=== PATIENT | female | born 1945 | race Caucasian/White ===

== ENCOUNTER → 2017-11-11 10:29 | Outpatient (CLI) | payer MEDICARE, BC, SELFPAY | PROVIDERS: Family Provider Family Medicine; PCP Family Medicine; Visit Provider Nurse Practitioner Family | DX: R00.2 Palpitations (principal); Z98.890 Other specified postprocedural states | CPT/HCPCS: 93225; 93226 ==

== ENCOUNTER → 2017-12-29 12:52 | Outpatient (CLI) | payer MEDICARE, SELFPAY ==
[2017-12-22 10:09] LABS: Hemoglobin A1c 6.4 % (4.2-6.3)
[2017-12-22 10:23] LABS: Magnesium 2.2 mg/dL (1.6-2.6); Thyroid Stim Hormone (TSH) 3.34 uIU/mL (0.358-3.74)
--- NOTE | 2017-12-29 12:57 | MRI_ITS ---
STUDY: MRI BRAIN WITHOUT CONTRAST REASON FOR EXAM: Female, 72 years old. LOSS OF CONTROL BILAT UE, SPEECH CHANGE, EPISODE 3 WKS AGO X SEVERAL HOURS TECHNIQUE: Standardized multiplanar fat and water weighted pulse sequences were obtained. COMPARISON: None. FINDINGS: There is moderate cerebral atrophy with widening of the extra-axial spaces and ventricular dilatation. There are a limited number of small white matter hyperintensities, distributed throughout the deep white matter tracts of the cerebral hemispheres, consistent with mild chronic white matter ischemic changes. Normal bilateral basal ganglia. Normal thalami. There is no extra-axial fluid accumulation. Normal flow voids within the major intracranial circulation suggesting patency by spin echo criteria. Normal sella turcica, pituitary gland, infundibular stalk, optic chiasm and hypothalamus. Normal tectal plate and pineal gland. Normal midbrain, tamara and medulla. Normal cerebellum. Normal basal cisterns. Normal bilateral temporal bones. Normal bilateral internal auditory canals. No demonstrated orbital abnormality, within the constraints of a routine brain study. Normal visualized paranasal sinuses. Normal calvarium and skull base. Normal visualized soft tissue structures. Normal visualized upper cervical spine. MRI/Brain without Contrast IMPRESSION: Involutional changes of the brain, as described above. Electronically Signed: King Davis MD at 4:01 EDT Tel , Service support ,
== END ==
PROVIDERS: Family Provider Family Medicine; PCP Family Medicine; Visit Provider Nurse Practitioner Family
DX: G25.3 Myoclonus (principal); F32.9 Major depressive disorder, single episode, unspecified; R47.01 Aphasia; E11.9 Type 2 diabetes mellitus without complications
CPT/HCPCS: 36415; 70551; 83036; 83735; 84443

== ENCOUNTER → 2018-06-10 11:32 | Outpatient (CLI) | payer MEDICARE, SELFPAY ==
[2018-06-10 13:00] LABS: Hemoglobin A1c 6.5 % (4.2-6.3)
== END ==
PROVIDERS: Family Provider Family Medicine; PCP Family Medicine; Visit Provider Family Medicine
DX: Z86.2 Personal history of diseases of the blood and blood-forming organs and certain disorders involving the immune mechanism (principal)
CPT/HCPCS: 36415; 83036

== ENCOUNTER 2018-07-12 13:15 | Emergency (ER) | payer MEDICARE, SELFPAY ==
[2018-07-12 13:16] VITALS: BP 160/79; PULSE 67; RESP 16; TEMP 36.7; O2SAT 99; BMI 28.2
--- NOTE | 2018-07-12 13:48 | CT_ITS ---
STUDY: CT BRAIN WITHOUT CONTRAST REASON FOR EXAM: Female, 72 years old. Headache. Recent fall. RADIATION DOSAGE (If Supplied By Facility): CTDIvol = ( 44.99 ) mGy, DLP = ( 745.49 ) mGycm TECHNIQUE: Transaxial CT imaging of the brain was performed without administration of intravenous contrast material. Individualized dose optimization techniques were used for this CT. COMPARISON: MRI December 29, 2017. FINDINGS: Normal soft tissue structures. Normal calvarium. There are moderate bilateral intermediate density extra-axial collections measuring up to 1.7 cm in thickness consistent with subdural hygromas. There is effacement of the sulci. Normal size ventricles . Normal white matter tracts of the cerebral hemispheres. Normal basal ganglia and thalami. Normal brainstem. Normal cerebellum. There are no findings of an acute ischemic infarction. Normal visualized paranasal sinuses. CT/Brain/Head without Contrast IMPRESSION: Bilateral subdural collections with hematomas or hygromas. There is effacement of the sulci. N.B. : The above information has been verbally conveyed by Aj Gifford MD to Bobby Miller MD, , on 07/12/2018 15:07:29 (ET). Electronically Signed: Aj Gifford MD at 15:02 EDT , Service support ,
[2018-07-12] MEDS: DiphenhydrAMINE 50 MG/ML Syringe 12.5 MG IV (14:08)
[2018-07-12] MEDS: proCHLORPERazine 10 MG/2 ML Vial 5 MG IV (14:08)
[2018-07-12] MEDS: 0.9% Normal Saline 1,000 ML 999 ML IV (14:08)
--- NOTE | 2018-07-12 15:18 | NURSING ---
CALLED [facility] FOR TRANSFER.
--- NOTE | 2018-07-12 15:22 | ED.VISSUMM ---
- ER Visit Summary Date of Service: 07/12/18 Chief Complaint: Headache History of Present Illness: The patient is a 72 F with headaches intermittently for the past 2 months. This started when she fell at [employer]. She was helping someone else who was falling, and she hit her head. She has had headaches since. The headaches last for several minutes at a time and are worse with exertion. Today, she had a headache that started around 9:30 AM and it has been constant and unrelenting, so she sought medical attention. She does take aspirin daily. Denies any other blood thinners. Denies any other associated symptoms. Denies history of stroke, aneurysm. Physical Examination: Afebrile and vital signs unremarkable except for a blood pressure of 160/79. Patient is alert and oriented. Appears uncomfortable. Head and neck atraumatic. Neck nontender. Cranial nerves grossly intact. NIH stroke scale is 0. Heart regular rate and rhythm. Lungs clear. Abdomen soft. Test Results: CT brain shows bilateral subdural hygromas with effacement of her sulci, maximum thickness is 1.7 cm. Labs pending. Emergency Department Course and Treatment: Patient had an abnormal CT. I believe this is consistent with her previous trauma. I did send basic blood work and coags. I advised neurosurgery evaluation. Patient requested [facility]. Patient was discussed with Dr. Brown and accepted by Dr. Lemons. Treatment Plan: As above Disposition: Transfer Impression: 1. Bilateral subdural hygromas This note was generated with [employer] dictation software. It may contain incorrect words, spelling, and punctuation that were not noted in review of the chart prior to signing ED Disposition - Plan for ED Patient: Chief Complaint: Headache Referrals: Brandon Chew DO [Primary Care Provider] -
--- NOTE | 2018-07-12 15:25 | ED.DCSUM_ITS ---
- ER Visit Summary Date of Service: 07/12/18 Chief Complaint: Headache History of Present Illness: The patient is a 72 F with headaches intermittently for the past 2 months. This started when she fell at [employer]. She was helping someone else who was falling, and she hit her head. She has had headaches sin ce. The headaches last for several minutes at a time and are worse with exertion. Today, she had a headache that started around 9:30 AM and it has been constant and unrelenting, so she sought medical attention. She does take aspirin daily. Denies any other blood thinners. Denies any other associated symptoms. Denies history of stroke, aneurysm. Physical Examination: Afebrile and vital signs unremarkable except for a blood pressure of 160/79. Patient is alert and oriented. Appears uncomfortable. Head and neck atraumatic. Neck nontender. Cranial nerves grossly intact. NIH stroke scale is 0. Heart regular rate and rhythm. Lungs clear. Abdomen soft. Test Results: CT brain shows bilateral subdural hygromas with effacement of her sulci, maximum thickness is 1.7 cm. Labs pending. Emergency Department Course and Treatment: Patient had an abnormal CT. I believe this is consistent with her previous trauma. I did send basic blood work and coags. I advised neurosurgery evaluation. Patient requested [facility]. Patient was discussed with Dr. Brown and accepted by Dr. Lemons. Treatment Plan: As above Disposition: Transfer Impression: 1. Bilateral subdural hygromas This note was generated with [employer] dictation software. It may contain incorrect words, spelling, and punctuation that were not noted in review of the chart prior to signing ED Disposition - Plan for ED Patient: Chief Complaint: Headache Referrals: Brandon Chew DO [Primary Care Provider] -
--- NOTE | 2018-07-12 15:27 | NURSING ---
DR KIM VASQUEZ
[2018-07-12 15:39] LABS: Absolute Neutrophil Count 3.8 X10^3/uL (2.0-7.7); Basophil# 0.03 X10^3/uL; Basophil% 0.6 % (0-1); Eosinophil# 0.22 X10^3/uL; Eosinophils% 4.1 % (0-5); Hematocrit 36.6 % (37-47); Hemoglobin 11.8 g/dl (12.0-15.0); Lymphocyte % 18.8 % (19-41); Mean Corp Hgb Conc 32.2 g/gl (32-36); Mean Corpuscular Hgb 27.6 pg (27.0-32.0); Mean Corpuscular Volume 85.7 fL (81-99); Mean Platelet Vol. 9.6 fl (6.2-12.0); Monocyte# 0.29 X10^3/uL; Monocyte% 5.5 % (0-10); Neutrophil # 3.75 X10^3/uL (2.7-7.7); Neutrophil % 70.6 % (47-70); Platelet Count 337 K/mm3 (150-450); RBC Distribution Width CV 13.5 % (11.6-14.6); RBC Distribution Width SD 41.7 fl (35.1-43.9); Red Blood Count 4.27 M/mm3 (4.2-5.4); White Blood Count 5.3 K/mm3 (4.4-11.0)
[2018-07-12 15:40] LABS: POSITIVE COUNT NO; POSITIVE DIFFERENTIAL NO; POSITIVE MORPHOLOGY NO
--- NOTE | 2018-07-12 15:43 | NURSING ---
DR EDWARDS FOR DR VASQUEZ
--- NOTE | 2018-07-12 15:46 | NURSING ---
[facility] ROOM [id number], TELE STEPDOWN REPORT [phone]
[2018-07-12 15:56] LABS: Anion Gap 5 (5-15); BUN 9 mg/dL (7-18); BUN/Creat Ratio 11.3 RATIO (10-20); Calcium,Total 8.1 mg/dL (8.5-10.1); Chloride 106 mmol/L (98-107); EST Glomerular Filtration Rate 75 mL/min (>60); Est Glom Filt Rate - Afr Amer 91 mL/min (>60); Estimated Creatinine Clearance 58.63 ml/min; Glucose 109 mg/dL (74-106); Potassium 3.4 mmol/L (3.5-5.1); Sodium Level 141 mmol/L (136-145)
[2018-07-12 15:57] VITALS: BP 138/61; PULSE 71; RESP 16; TEMP 36.7; O2SAT 100
--- NOTE | 2018-07-12 16:13 | NURSING ---
CALLED FOR [facility] FOR TRANSPORT
[2018-07-12 16:23] LABS: Partial Thromboplast Time 30.6 Seconds (24.1-36.2)
== END 2018-07-12 16:45 | disposition short-term general hospital (02) ==
LOC: ED 13:55
PROVIDERS: Emergency Provider Emergency Medicine; Family Provider Family Medicine; PCP Family Medicine
DX: G96.0 Cerebrospinal fluid leak (principal); W19.XXXA Unspecified fall, initial encounter; Y93.9 Activity, unspecified; Y92.22 Religious institution as the place of occurrence of the external cause; K21.9 Gastro-esophageal reflux disease without esophagitis; E11.9 Type 2 diabetes mellitus without complications; I10 Essential (primary) hypertension; I25.2 Old myocardial infarction; F41.9 Anxiety disorder, unspecified; I47.1 Supraventricular tachycardia; Z79.84 Long term (current) use of oral hypoglycemic drugs; Z79.899 Other long term (current) drug therapy; Z87.891 Personal history of nicotine dependence
CPT/HCPCS: 70450; 80048; 85025; 85610; 85730; 96361; 96374; 96375; 99285; J7030; A4216

== ENCOUNTER → 2018-07-31 11:13 | Outpatient (CLI) | payer MEDICARE, SELFPAY ==
[2018-07-31 11:16] LABS: Mucous, Urine 0 SEEN /hpf (<or=2+); Red Blood Cells-Urine 0 SEEN /hpf (0-5)
[2018-07-31 14:38] LABS: Color, Urine Yellow (Yellow); Glucose, Dipstick Normal (Normal); Ketone-Dipstick 5 mg/dl (Negative); Leukocyte Esterase-Dipstick 100 /ul (Negative); Nitrite-Dipstick Negative (Negative); Occult Blood-Urine Negative /ul (Negative); Protein-Dipstick 15 mg/dl (Negative); Urine Clarity Sl. Cloudy (Clear); Urine Urobilinogen 1 mg/dl (Normal)
[2018-07-31 14:39] LABS: Urine Bilirubin Dipstick 1 mg/dL (Negative)
[2018-07-31 14:40] LABS: Absolute Lymphocyte Count 1.08 X10^3/ul (0.83-4.51); Absolute Neutrophil Count 1.9 X10^3/uL (2.0-7.7); Basophil# 0.02 X10^3/uL; Basophil% 0.6 % (0-1); Eosinophil# 0.25 X10^3/uL; Eosinophils% 7.1 % (0-5); Hematocrit 36.7 % (37-47); Hemoglobin 11.4 g/dl (12.0-15.0); Lymphocyte # 1.08 X10^3/ul (4.0); Lymphocyte % 30.6 % (19-41); Mean Corp Hgb Conc 31.1 g/gl (32-36); Mean Corpuscular Hgb 26.8 pg (27.0-32.0); Mean Corpuscular Volume 86.2 fL (81-99); Monocyte# 0.26 X10^3/uL; Monocyte% 7.4 % (0-10); Neutrophil # 1.92 X10^3/uL (2.7-7.7); Neutrophil % 54.3 % (47-70); POSITIVE COUNT NO; POSITIVE DIFFERENTIAL NO; POSITIVE MORPHOLOGY NO; Platelet Count 380 K/mm3 (150-450); RBC Distribution Width CV 13.7 % (11.6-14.6); RBC Distribution Width SD 41.9 fl (35.1-43.9); Red Blood Count 4.26 M/mm3 (4.2-5.4); White Blood Count 3.5 K/mm3 (4.4-11.0)
[2018-07-31 14:52] LABS: Calcium Oxalate Crystals Ur 1+ /hpf (<or=2+); White Blood Cells 10-25 SEEN /hpf (0-5)
[2018-07-31 14:54] LABS: Bacteria 1+ /hpf (None Seen); Squamous Epithelial Cells - UA 0-5 SEEN /hpf (5-10); Yeast-Urine 2+ /hpf (None Seen)
[2018-07-31 15:31] LABS: ALB/GLOB Ratio 0.9 RATIO (0.9-2.4); AST(SGOT) 14 U/L (15-37); Alanine Aminotransfer ALT/SGPT 18 U/L (13-56); Albumin, Serum 3.7 g/dL (3.2-5.0); Alkaline Phosphatase 62 U/L (45-117); Anion Gap 9 (5-15); BUN 11 mg/dL (7-18); BUN/Creat Ratio 12.3 RATIO (10-20); Calcium,Total 9.1 mg/dL (8.5-10.1); Chloride 105 mmol/L (98-107); Cholesterol 185 mg/dL (200); Creatinine, Serum 0.89 mg/dL (0.55-1.02); EST Glomerular Filtration Rate 66 mL/min (>60); Est Glom Filt Rate - Afr Amer 79 mL/min (>60); Ferritin 66 ng/mL (8-252); Globulin 4.1 g/dL (2.2-4.2); Glucose 101 mg/dL (74-106); High Density Lipoprotein 46 mg/dL; Iron 35 ug/dL (50-170); Iron Binding Capacity,Total 249 ug/dL (250-450); Potassium 3.8 mmol/L (3.5-5.1); Protein, Total 7.8 g/dL (6.4-8.2); Sodium Level 142 mmol/L (136-145); Thyroid Stim Hormone (TSH) 3.87 uIU/mL (0.358-3.74); Triglycerides 124 mg/dL; Very Low Density Lipoprotein 25 mg/dL (5-40)
[2018-07-31 15:33] LABS: Microalbumin,Random Urine 33.8 mg/L (NO RANGE EST.); Microalbumin:Creatinine Ratio 10.9 mg/g CRE (<30 mg/g CRE)
[2018-07-31 15:35] LABS: Hemoglobin A1c 6.4 % (4.2-6.3)
== END ==
PROVIDERS: Family Provider Family Medicine; PCP Family Medicine; Visit Provider Family Medicine
DX: D64.9 Anemia, unspecified (principal); I10 Essential (primary) hypertension; E11.9 Type 2 diabetes mellitus without complications
CPT/HCPCS: 80053; 80061; 81001; 82043; 82570; 82728; 82746; 83036; 83540; 83550; 84443; 85025

== ENCOUNTER → 2018-08-19 10:16 | Outpatient (CLI) | payer MEDICARE, BC, SELFPAY ==
[2018-08-19 12:50] LABS: T4 Free Direct 1.01 ng/dL (0.76-1.46); Thyroid Stim Hormone (TSH) 3.27 uIU/mL (0.358-3.74)
[2018-08-24 16:17] LABS: Anti-Thyroglobulin AB < 1.0 IU/mL (0.0-0.9); Thyroglobulin, Serum Qt. 11.5 ng/mL (1.5-38.5); Thyroid Peroxidase AB 14 IU/mL (0-34)
== END ==
PROVIDERS: Family Provider Family Medicine; PCP Family Medicine; Visit Provider Family Medicine
DX: R79.89 Other specified abnormal findings of blood chemistry (principal); D64.9 Anemia, unspecified
CPT/HCPCS: 36415; 84432; 84439; 84443; 86376; 86800

== ENCOUNTER → 2018-09-25 15:49 | Outpatient (CLI) | payer MEDICARE, BC, SELFPAY ==
[2018-09-25 17:53] LABS: Iron 34 ug/dL (50-170)
[2018-09-25 18:00] LABS: Hematocrit 36.5 % (37-47); Hemoglobin 11.3 g/dl (12.0-15.0); Mean Corpuscular Hgb 26.3 pg (27.0-32.0); Mean Corpuscular Volume 85.1 fL (81-99); Mean Platelet Vol. 9.9 fl (6.2-12.0); Platelet Count 347 K/mm3 (150-450); RBC Distribution Width CV 13.8 % (11.6-14.6); RBC Distribution Width SD 41.9 fl (35.1-43.9); Red Blood Count 4.29 M/mm3 (4.2-5.4); White Blood Count 4.9 K/mm3 (4.4-11.0)
[2018-09-25 18:16] LABS: Scan Indicated on CBC? Y/N NO
== END ==
PROVIDERS: Family Provider Family Medicine; PCP Family Medicine; Referring Provider Internal Medicine Gastroenterology; Visit Provider Internal Medicine Gastroenterology
DX: D50.9 Iron deficiency anemia, unspecified (principal)
CPT/HCPCS: 36415; 83540; 85027

== ENCOUNTER → 2018-10-09 09:17 | Outpatient (CLI) | payer MEDICARE, BC, SELFPAY ==
--- NOTE | 2018-10-09 09:25 | RAD_ITS ---
STUDY: X-RAY - ESOPHAGUS (BARIUM SWALLOW) WITH FLUOROSCOPY REASON FOR EXAM: Female, 73 years old. Chronic dysphasia. TECHNIQUE: 16 view(s) of the esophagus were obtained following swallowing of barium. FLUOROSCOPY TIME (if supplied): (0:36) minutes/seconds COMPARISON: None. FINDINGS: There is no demonstrated esophageal foreign body. There is no demonstrated stricture or mucosal abnormality. Normal gastroesophageal junction, without a demonstrated hiatal hernia. The patient ingested a 12 mm tablet of barium without any difficulty. There is atherosclerotic tortuosity of the aortic arch and descending thoracic aorta. Normal visualized pulmonary parenchyma. Normal visualized osseous structures of the thorax. RAD/Esophagus Only IMPRESSION: Normal plain film x-ray examination (barium swallow) of the esophagus. Electronically Signed: Romero Gonzáles MD at 10:14 EST Tel [phone], Service support ,
== END ==
PROVIDERS: Family Provider Family Medicine; PCP Family Medicine; Referring Provider Internal Medicine Gastroenterology; Visit Provider Internal Medicine Gastroenterology
DX: R13.10 Dysphagia, unspecified (principal)
CPT/HCPCS: 74220

== ENCOUNTER → 2018-12-03 10:32 | Outpatient (CLI) | payer MEDICARE, BC, SELFPAY ==
[2018-11-24 11:03] VITALS: BMI 27.7
[2018-12-03 12:25] LABS: Absolute Lymphocyte Count 0.91 X10^3/ul (0.83-4.51); Absolute Neutrophil Count 2.1 X10^3/uL (2.0-7.7); Basophil# 0.03 X10^3/uL; Basophil% 0.8 % (0-1); Eosinophil# 0.24 X10^3/uL; Eosinophils% 6.7 % (0-5); Hematocrit 38.5 % (37-47); Hemoglobin 11.6 g/dl (12.0-15.0); Lymphocyte # 0.91 X10^3/ul (4.0); Lymphocyte % 25.5 % (19-41); Mean Corp Hgb Conc 30.1 g/gl (32-36); Mean Corpuscular Hgb 25.2 pg (27.0-32.0); Mean Corpuscular Volume 83.7 fL (81-99); Mean Platelet Vol. 9.8 fl (6.2-12.0); Monocyte# 0.33 X10^3/uL; Monocyte% 9.2 % (0-10); Neutrophil # 2.05 X10^3/uL (2.7-7.7); Neutrophil % 57.5 % (47-70); Platelet Count 342 K/mm3 (150-450); RBC Distribution Width CV 14.9 % (11.6-14.6); White Blood Count 3.6 K/mm3 (4.4-11.0)
[2018-12-03 12:32] LABS: POSITIVE COUNT NO; POSITIVE DIFFERENTIAL NO; POSITIVE MORPHOLOGY NO
[2018-12-03 12:46] LABS: Hemoglobin A1c 6.4 % (4.2-6.3)
[2018-12-03 12:49] LABS: AST(SGOT) 18 U/L (15-37); Alanine Aminotransfer ALT/SGPT 23 U/L (13-56); Albumin, Serum 3.8 g/dL (3.2-5.0); Alkaline Phosphatase 107 U/L (45-117); Anion Gap 8 (5-15); BUN 10 mg/dL (7-18); BUN/Creat Ratio 12.1 RATIO (10-20); Calcium,Total 8.4 mg/dL (8.5-10.1); Chloride 108 mmol/L (98-107); Cholesterol 201 mg/dL (200); Creatinine, Serum 0.83 mg/dL (0.55-1.02); EST Glomerular Filtration Rate 71 mL/min (>60); Est Glom Filt Rate - Afr Amer 87 mL/min (>60); Globulin 3.8 g/dL (2.2-4.2); Glucose 156 mg/dL (74-106); High Density Lipoprotein 58 mg/dL; Potassium 3.8 mmol/L (3.5-5.1); Protein, Total 7.6 g/dL (6.4-8.2); Sodium Level 143 mmol/L (136-145); T4 Free Direct 0.85 ng/dL (0.76-1.46); Thyroid Stim Hormone (TSH) 4.39 uIU/mL (0.358-3.74); Triglycerides 154 mg/dL; Very Low Density Lipoprotein 31 mg/dL (5-40)
== END ==
PROVIDERS: Family Provider Family Medicine; PCP Family Medicine; Referring Provider Family Medicine; Visit Provider Family Medicine
DX: E11.9 Type 2 diabetes mellitus without complications (principal); I10 Essential (primary) hypertension; R79.89 Other specified abnormal findings of blood chemistry
CPT/HCPCS: 36415; 80053; 80061; 83036; 84439; 84443; 85025

== ENCOUNTER → 2019-03-03 | Outpatient (CLI) | payer MEDICARE, BC, SELFPAY ==
[2018-11-24 11:03] VITALS: BMI 27.7
[2019-03-03 14:16] LABS: Absolute Lymphocyte Count 1.14 X10^3/ul (0.83-4.51); Absolute Neutrophil Count 1.8 X10^3/uL (2.0-7.7); Basophil# 0.04 X10^3/uL; Basophil% 1.2 % (0-1); Eosinophil# 0.21 X10^3/uL; Eosinophils% 6.1 % (0-5); Hematocrit 36.6 % (37-47); Hemoglobin 11.3 g/dl (12.0-15.0); Lymphocyte # 1.14 X10^3/ul (4.0); Lymphocyte % 33.2 % (19-41); Mean Corp Hgb Conc 30.9 g/gl (32-36); Mean Platelet Vol. 10.3 fl (6.2-12.0); Monocyte# 0.27 X10^3/uL; Monocyte% 7.9 % (0-10); Neutrophil # 1.77 X10^3/uL (2.7-7.7); Neutrophil % 51.6 % (47-70); Platelet Count 315 K/mm3 (150-450); Red Blood Count 4.52 M/mm3 (4.2-5.4); White Blood Count 3.4 K/mm3 (4.4-11.0)
[2019-03-03 14:20] LABS: POSITIVE COUNT NO; POSITIVE DIFFERENTIAL NO; POSITIVE MORPHOLOGY NO
[2019-03-03 14:29] LABS: Hemoglobin A1c 6.6 % (4.2-6.3); Vitamin B12 657 pg/mL (211-911)
[2019-03-03 14:32] LABS: Microalbumin,Random Urine 13.6 mg/L (NO RANGE EST.); Microalbumin:Creatinine Ratio 8.6 mg/g CRE (<30 mg/g CRE)
[2019-03-03 14:37] LABS: ALB/GLOB Ratio 0.9 RATIO (0.9-2.4); AST(SGOT) 18 U/L (15-37); Alanine Aminotransfer ALT/SGPT 23 U/L (13-56); Albumin, Serum 3.6 g/dL (3.2-5.0); Alkaline Phosphatase 85 U/L (45-117); Anion Gap 10 (5-15); BUN 11 mg/dL (7-18); Calcium,Total 9.1 mg/dL (8.5-10.1); Chloride 107 mmol/L (98-107); Cholesterol 192 mg/dL (200); Creatinine, Serum 0.73 mg/dL (0.55-1.02); EST Glomerular Filtration Rate 82 mL/min (>60); Est Glom Filt Rate - Afr Amer 100 mL/min (>60); Ferritin 60 ng/mL (8-252); Globulin 3.9 g/dL (2.2-4.2); Glucose 101 mg/dL (74-106); High Density Lipoprotein 60 mg/dL; Iron 46 ug/dL (50-170); Iron Binding Capacity,Total 269 ug/dL (250-450); Potassium 3.5 mmol/L (3.5-5.1); Protein, Total 7.5 g/dL (6.4-8.2); Sodium Level 145 mmol/L (136-145); Thyroid Stim Hormone (TSH) 3.49 uIU/mL (0.358-3.74); Triglycerides 77 mg/dL; Very Low Density Lipoprotein 15 mg/dL (5-40)
== END | disposition home or self-care (01) ==
PROVIDERS: Family Provider Family Medicine; PCP Family Medicine; Referring Provider Family Medicine; Visit Provider Family Medicine
DX: E11.9 Type 2 diabetes mellitus without complications (principal); E03.9 Hypothyroidism, unspecified; D64.9 Anemia, unspecified
CPT/HCPCS: 36415; 80053; 80061; 82043; 82570; 82607; 82728; 82746; 83036; 83540; 83550; 84439; 84443; 85025

== ENCOUNTER 2019-04-10 00:25 | Observation (INO) | payer MEDICARE, BC, SELFPAY ==
[2018-11-24 11:03] VITALS: BMI 27.7
[2019-04-10] VITALS (12 sets, daily range): BP systolic 134–180; BP diastolic 43–93; PULSE 32–69; RESP 16–20; TEMP 36.6–36.7; O2SAT 97–98; BMI 27.1; BMI 27.4; BMI 27.5
--- NOTE | 2019-04-10 01:26 | EKG12_ITS ---
Test Reason : PALPITATIONS Blood Pressure : / mmHG Vent. Rate : 051 BPM Atrial Rate : 058 BPM P-R Int : 000 ms QRS Dur : 082 ms QT Int : 438 ms P-R-T Axes : 058 -45 018 degrees QTc Int : 403 ms Sinus bradycardia with 2nd degree A-V block (Mobitz I) Left anterior fascicular block Minimal voltage criteria for LVH, may be normal variant Abnormal ECG Confirmed by MARIELLE CASPER, ISIDORO ([id number]), offline editor ALURA BRUCE ([id number]) on 04/13/2019 2:21:34 PM Referred By: JAGJIT Confirmed By:ISIDORO PALOMARES MD
--- NOTE | 2019-04-10 01:26 | RAD_ITS ---
HISTORY: Chest pain. EXAM: XR Chest 1 View: COMPARISON: None FINDINGS: # of images incl. paperwork: 1 Lungs are clear. Heart is not enlarged. Bones are normal. Pulmonary vascularity is distinct. No effusions. RAD/Chest 1 View (Portable) IMPRESSION: Normal. at 0155 Reported and signed by: Dread Harden MD Electronically Signed: Dread Harden MD at 1:54 EDT Tel , Service support ,
[2019-04-10 01:38] LABS: Absolute Lymphocyte Count 1.43 X10^3/ul (0.83-4.51); Absolute Neutrophil Count 2.5 X10^3/uL (2.0-7.7); Basophil# 0.03 X10^3/uL; Basophil% 0.6 % (0-1); Eosinophil# 0.31 X10^3/uL; Eosinophils% 6.6 % (0-5); Hematocrit 38.9 % (37-47); Hemoglobin 12.4 g/dl (12.0-15.0); Lymphocyte # 1.43 X10^3/ul (4.0); Lymphocyte % 30.6 % (19-41); Mean Corp Hgb Conc 31.9 g/gl (32-36); Mean Corpuscular Hgb 26.1 pg (27.0-32.0); Mean Corpuscular Volume 81.9 fL (81-99); Mean Platelet Vol. 9.1 fl (6.2-12.0); Monocyte# 0.45 X10^3/uL; Monocyte% 9.6 % (0-10); Neutrophil # 2.45 X10^3/uL (2.7-7.7); Neutrophil % 52.6 % (47-70); POSITIVE COUNT NO; POSITIVE DIFFERENTIAL NO; POSITIVE MORPHOLOGY NO; Platelet Count 335 K/mm3 (150-450); RBC Distribution Width CV 14.5 % (11.6-14.6); RBC Distribution Width SD 43.4 fl (35.1-43.9); Red Blood Count 4.75 M/mm3 (4.2-5.4); White Blood Count 4.7 K/mm3 (4.4-11.0)
[2019-04-10 01:50] LABS: Anion Gap 5 (5-15); BUN 13 mg/dL (7-18); BUN/Creat Ratio 14.5 RATIO (10-20); Calcium,Total 9.1 mg/dL (8.5-10.1); Chloride 106 mmol/L (98-107); EST Glomerular Filtration Rate 65 mL/min (>60); Est Glom Filt Rate - Afr Amer 79 mL/min (>60); Estimated Creatinine Clearance 51.34 ml/min; Glucose 142 mg/dL (74-106); Potassium 3.6 mmol/L (3.5-5.1); Sodium Level 142 mmol/L (136-145)
[2019-04-10] MEDS: Aspirin 81 MG TAB.CHEW 324 MG PO (02:04)
--- NOTE | 2019-04-10 02:20 | ED.DCSUM_ITS ---
- ER Visit Summary Date of Service: 04/10/19 Chief Complaint: Palpitations History of Present Illness: The patient is a 73 F who presents with palpitations. This began about 7 hours before presentation. She states she felt like her heart was fluttering. She also had a uncomfortable feeling in her chest which she states was not really painful. She has a history of dysrhythmia. She states my heart was beating too fast and they gave me a shot. I suspect this was a supraventricular tachycardia. She states that with one episode she had a heart attack this could possibly have been rate related based on her description. She did have a cardiac ablation. Physical Examination: Afebrile heart rate 56 blood pressure 180/93 Moist mucous membranes Heart regular rate and rhythm on auscultation Lungs are clear Abdomen soft Alert Test Results: EKG shows sinus bradycardia at a rate of 51 with a second-degree AV block, Mobitz 1. Labs unremarkable with a negative troponin and chest x-ray is normal. Emergency Department Course and Treatment: While he was examining the patient on telemetry she progressed to a 2:1 second-degree AV block. I do feel she should be hospitalized for observation ongoing telemetry and further work-up. This could potentially be related to beta-blockade. Patient discussed with the hospitalist and admitted. Treatment Plan: [] Disposition: Admit Impression: Second-degree AV block This note was generated with [employer] dictation software. It may contain incorrect words, spelling, and punctuation that were not noted in review of the chart prior to signing
--- NOTE | 2019-04-10 02:21 | HP.PCM_ITS ---
Problem List (1) HLD (hyperlipidemia) Status: Chronic Qualifiers: Hyperlipidemia type: unspecified Qualified Code(s): E78.5 - Hyperlipidemia, unspecified (2) Supraventricular tachycardia Status: Chronic Comment: AVNRT ablation 2015 (3) Depression Status: Chronic Qualifiers: Major depression recurrence: unspecified whether recurrent Major depression episode severity: unspecified (4) Anxiety Status: Chronic History of Present Illness Date of Admission: 04/10/19 Chief Complaint: Irregular heart rate - 1 day The patient is a 73 year old F with PMHx of AVNRT s/p ablation, type II DM, hypertension, hyperlipidemia who comes in with the sensation of palpitations and missed beats in her chest. Patient has history of arrhythmias and follows with Dr. Latif in the outpatient. She was in her usual state of health when she had the above presentation. Denied any chest pain per se. She denies feeling dizzy or having leg swelling no orthopnea or PND. There has been no changes to her medication. Vitals in the ED show temperature of 97.8F, heart rate 56, blood pressure 180/93, respiratory rate was 20, SPO2 98% on room air. Admitting blood work was unremarkable. Troponins were negative EKG done in the emergency department was suggestive of second-degree AV block( Mobitz II), HR was 51. Past Medical History Past Medical History (Chronic Problems): Chronic Problems (Last Reviewed 11/24/18 @ 11:14 by Teodoro Latif MD) Hx of non-ST elevation myocardial infarction (NSTEMI) (Chronic) NSTEMI 11/25/15 HLD (hyperlipidemia) (Chronic) Supraventricular tachycardia (Chronic) AVNRT ablation 2015 Depression (Chronic) Anxiety (Chronic) Chronic back pain (Chronic) Osteoarthritis (Chronic) Seasonal allergies (Chronic) Heart palpitations (Chronic) Hypertension (Chronic) Medical History: Medical History (Last Reviewed 11/24/18 @ 11:14 by Teodoro Latif MD) Hx of non-ST elevation myocardial infarction (NSTEMI) (Chronic) I25.2 NSTEMI 11/25/15 HLD (hyperlipidemia) (Chronic) E78.5 Supraventricular tachycardia (Chronic) I47.1 AVNRT ablation 2015 Depression (Chronic) F32.9 Anxiety (Chronic) F41.9 Goiter (Acute) E04.9 Chronic back pain (Chronic) M54.9, G89.29 Osteoarthritis (Chronic) M19.90 History of anemia (Acute) Z86.2 Seasonal allergies (Chronic) J30.2 Heart palpitations (Chronic) R00.2 Type 2 diabetes mellitus (Acute) E11.9 GERD (gastroesophageal reflux disease) (Acute) K21.9 Hypertension (Chronic) I10 History of hysterectomy Z90.710 OPAL (obstructive sleep apnea) G47.33 Allergies lisinopril Adverse Reaction (Severe, Verified 04/10/19 00:27) Cough Home Medications: Ambulatory Orders Medication Instructions Recorded amlodipine 5 mg tablet 5 mg PO DAILY tab 12/16/17 omeprazole 20 mg tablet,delayed 20 mg PO BID 12/16/17 release cyclobenzaprine 10 mg tablet 10 mg PO TID #30 tab 06/10/18 ferrous sulfate 325 mg (65 mg 325 mg PO DAILY tab 06/10/18 iron) tablet metoprolol succinate ER 50 mg 50 mg PO QDAY #90 tab 11/24/18 tablet,extended release 24 hr ALPRAZolam [Xanax] 0.5 mg PO BID PRN PRN 04/10/19 Garlic 1,000 mg PO DAILY 04/10/19 Metformin HCl 500 mg PO BID 04/10/19 Sertraline HCl [Zoloft] 100 mg PO DAILY 04/10/19 traZODone [Desyrel] 100 mg PO QHS PRN 04/10/19 Surgical History: Surgical History (Last Reviewed 11/24/18 @ 11:14 by Teodoro Latif MD) H/O brain surgery (Resolved) Z98.890 Vijaya/Spencer 07/13/2018 History of cholecystectomy Z90.49 History of cardiac radiofrequency ablation (RFA) Z98.890 EPS w/ AVNRT ablation 08/09/2016 Surgical History: cholecystectomy, - - Status post AVNRT ablation, history of intracranial surgery for bleed Psychiatric History: No pertinent psych hx 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 History: No pertinent 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 history Lives: Spouse/ Significant Other Smoking Status: Former smoker Tobacco Use: Non-smoker Alcohol: None Drugs: None - *Family History Maternal Family History: Family History (Last Reviewed 11/24/18 @ 11:14 by Teodoro Latif MD) Mother Heart disease Myocardial infarction Diabetes Grandfather Heart disease History Items: Diabetes Paternal Family History: Family History (Last Reviewed 11/24/18 @ 11:14 by Teodoro Latif MD) Mother Heart disease Myocardial infarction Diabetes Grandfather Heart disease History Items: No pertinent history Review of Systems Constitutional: Denies: Anorexia, Chills, Fever, Malaise, Weakness, Weight Change Eyes: Denies: Blurred vision, Cataracts, Conjunctivae Inflammation, Pain, Redness, Vision Change HEENT: Denies: Difficulty Swallowing, Head Aches, Hearing Changes, Sinus Congestion, Sinus Drainage Cardiovascular: Reports: Chest Pressure. Denies: Chest Pain, Light Headedness, Orthopnea, Palpitations, Paroxysmal Noc. Dyspnea Respiratory: Denies: Cough, Hemoptysis, Shortness of breath at rest, Shortness of breath upon exertion, Sputum production Gastrointestinal: Denies: Abdominal Pain, Hematemesis, Hematochezia, Nausea, Vomiting Genitourinary: Denies: Dysuria, Frequency Gynecological: Denies: Breast symptoms, Excessively long or heavy periods Musculoskeletal: Denies: Joint Pain, Joint stiffness, Joint swelling, Joint Tenderness Skin: Denies: Rash, Wounds Neurological: Denies: Numbness, Tingling, Focal weakness Psychiatric: Denies: Anxiety, Depression, Homicidal Ideations, Suicidal Ideations Hematologic/ Lymphatic: Denies: Easy Bruising, Easy Bleeding VTE Information - Inpt Only VTE Present on Admission: No VTE Pharm Prophylaxis ordered?: Yes - Physical Exam General: Alert, Oriented x3, Cooperative, No apparent distress HEENT: Atraumatic, PERRLA, EOMI, Normocephalic Oral: Moist Mucosa Neck: Supple Lungs: Clear to auscultation, Normal air movement Cardiovascular: Regular rate, Regular Rhythm, Normal S1, Normal S2, No murmurs, - - skipped beats Abdomen: Bowel Sounds Present, Soft, Non Tender, Non-Distended, No Hepato- splenomegaly Extremities: No edema Skin: No rashes, No breakdown Musculoskeletal: No Tenderness to Palpation of Joints or Extremities Neurological: Cranial nerves II-XII grossly intact, Neuro grossly intact Psych/Mental Status: Normal Affect, Appropriate Vital Signs Temp Pulse Resp BP Pulse Ox 97.8 F 56 L 16 153/71 H 97 04/10/19 00:27 04/10/19 02:00 04/10/19 02:00 04/10/19 02:00 04/10/19 02:00 Oxygen Flow Rate (L/min) 2 Oxygen Delivery Method Nasal Cannula Weight: 76.204 kg Body Mass Index (BMI) 27.1 Laboratory Tests Past 24 Hrs 04/10/19 04/10/19 01:05 01:05 WBC 4.7 RBC 4.75 Hgb 12.4 Hct 38.9 MCV 81.9 MCH 26.1 L MCHC 31.9 L RDW 14.5 RDW Differential 43.4 Plt Count 335 MPV 9.1 Immature Gran % (Auto) 0.000 Neut % (Auto) 52.6 Lymph % (Auto) 30.6 [place] % (Auto) 9.6 Eos % (Auto) 6.6 H Baso % (Auto) 0.6 Absolute Neuts (auto) 2.5 Absolute Lymphs (auto) 1.43 Total Counted Not Reportable Sodium 142 Potassium 3.6 Chloride 106 Carbon Dioxide 31.0 Anion Gap 5 BUN 13 Creatinine 0.90 Estim Creat Clear Calc 51.34 Est GFR (MDRD) Af Amer 79 Est GFR (MDRD) Non-Af 65 BUN/Creatinine Ratio 14.5 Glucose 142 H Calcium 9.1 Troponin I < 0.015 Assessment/Plan All Active Problems (Last Reviewed 11/24/18 @ 11:14 by Teodoro Latif MD) H/O brain surgery (Resolved) Goiter (Acute) History of anemia (Acute) Type 2 diabetes mellitus (Acute) GERD (gastroesophageal reflux disease) (Acute) 73 year old F with PMHx of AVNRT s/p ablation, type II DM, hypertension, hyperlipidemia who comes in with the sensation of palpitations and missed beats in her chest. 1. Bradycardia, second-degree AV block, Mobitz II, history of AVNRT status post ablation, on metoprolol Plan: Admit to PCU, hold metoprolol, continue to monitor on telemetry, cardiology consult, trend troponins 2. Type II DM, on metformin, will continue same as well as insulin sliding scale with blood sugar checks 3. Hypertension, controlled, on amlodipine 5mg daily, will increase it to 10 mg daily as metoprolol is being held Continue to monitor vitals 4. Anxiety/depression, on Zoloft, alprazolam, trazodone 5. GERD on PPI 6. DVT PPx- Heparin SC Code Visit Inpatient E&M: 45543 Init Hosp L3
[2019-04-10] MEDS: 0.9% Normal Saline 1,000 ML 75 ML IV (03:02)
[2019-04-10] MEDS: cycloBENZAPRine HCl 10 MG Tablet PO ×3 (06:15→21:42)
[2019-04-10] MEDS: Heparin Injection (Vial) 5,000 UNIT/ML VIAL 5000 UNIT SC ×3 (06:15→21:42)
[2019-04-10 06:19] LABS: Absolute Lymphocyte Count 1.48 X10^3/ul (0.83-4.51); Absolute Neutrophil Count 2.3 X10^3/uL (2.0-7.7); Basophil# 0.02 X10^3/uL; Basophil% 0.4 % (0-1); Eosinophil# 0.26 X10^3/uL; Eosinophils% 5.8 % (0-5); Hematocrit 40.3 % (37-47); Hemoglobin 12.4 g/dl (12.0-15.0); Lymphocyte # 1.48 X10^3/ul (4.0); Mean Corp Hgb Conc 30.8 g/gl (32-36); Mean Corpuscular Volume 81.3 fL (81-99); Mean Platelet Vol. 9.6 fl (6.2-12.0); Monocyte# 0.43 X10^3/uL; Monocyte% 9.6 % (0-10); Neutrophil # 2.29 X10^3/uL (2.7-7.7); Platelet Count 324 K/mm3 (150-450); RBC Distribution Width CV 14.6 % (11.6-14.6); RBC Distribution Width SD 42.6 fl (35.1-43.9); Red Blood Count 4.96 M/mm3 (4.2-5.4); White Blood Count 4.5 K/mm3 (4.4-11.0)
[2019-04-10 06:20] LABS: POSITIVE COUNT NO; POSITIVE DIFFERENTIAL NO; POSITIVE MORPHOLOGY NO
[2019-04-10 06:38] LABS: AST(SGOT) 16 U/L (15-37); Alanine Aminotransfer ALT/SGPT 19 U/L (13-56); Albumin, Serum 3.7 g/dL (3.2-5.0); Alkaline Phosphatase 95 U/L (45-117); Anion Gap 5 (5-15); BUN 14 mg/dL (7-18); BUN/Creat Ratio 16.6 RATIO (10-20); Calcium,Total 8.8 mg/dL (8.5-10.1); Chloride 107 mmol/L (98-107); Creatinine, Serum 0.84 mg/dL (0.55-1.02); EST Glomerular Filtration Rate 70 mL/min (>60); Est Glom Filt Rate - Afr Amer 85 mL/min (>60); Estimated Creatinine Clearance 55.01 ml/min; Globulin 3.8 g/dL (2.2-4.2); Glucose 113 mg/dL (74-106); Potassium 3.7 mmol/L (3.5-5.1); Protein, Total 7.5 g/dL (6.4-8.2); Sodium Level 143 mmol/L (136-145)
[2019-04-10 08:31] LABS: Bedside Glucose 113 mg/dL (70-110)
--- NOTE | 2019-04-10 08:46 | ECHOD_ITS ---
Reason For Study: Arrhythmia Procedure This was a 2D Doppler, Color Flow transthoracic echocardiogram. Exam performed portable in patient room. Left Ventricle Normal LV size. Left ventricular systolic function is normal. The estimated ejection fraction is 65 %. Stage 1 diastolic dysfunction. No regional wall motion abnormalities noted. Right Ventricle Normal RV size. Normal systolic function. Atria Normal left atrium. Normal right atrium. Mitral Valve Normal mitral valve. Tricuspid Valve Normal tricuspid valve. Aortic Valve Normal aortic valve. Trisinus/trileaflet aortic valve. Pulmonic Valve Normal pulmonic valve. Great Vessels Normal aortic root. The pulmonary artery is normal size. Normal inferior vena cava. Pericardium/Pleural No pericardial effusion. MMode/2D Measurements & Calculations LVIDd: 3.8 cm IVSd: 1.1 cm Ao root diam: 2.7 cm LVIDs: 2.1 cm LVPWd: 0.98 cm RVDd: 3.2 cm FS: 45.3 % LAV(MOD-bp): 53.7 ml LVAd ap4: 25.3 cm2 SV(MOD-sp4): 45.4 ml LAV(MOD-bp) Indexed: 28.8 ml/m2 EDV(MOD-sp4): 66.0 ml LAV(MOD-sp2): 46.2 ml EDV(sp4-el): 68.6 ml LAV(MOD-sp4): 51.4 ml LVAs ap4: 12.6 cm2 ESV(MOD-sp4): 20.6 ml ESV(sp4-el): 20.4 ml EF(MOD-sp4): 68.8 % EF(sp4-el): 70.2 % SV(sp4-el): 48.2 ml LA A4 area: 18.8 cm2 LA dimension(2D): 3.2 cm RA A4 area: 11.6 cm2 Doppler Measurements & Calculations MV E max jonah: 72.9 cm/sec Lat Peak E' Jonah: 5.4 cm/sec Med Peak E' Jonah: 5.0 cm/sec MV A max jonah: 103.8 cm/sec E/E' lat: 13.4 E/E' med: 14.5 MV E/A: 0.70 Ao V2 max: 118.1 cm/sec LV V1 max: 86.1 cm/sec PA V2 max: 91.5 cm/sec Ao max P.6 mmHg LV V1 max P.0 mmHg Ao V2 mean: 82.3 cm/sec Ao mean P.9 mmHg Ao V2 VTI: 28.9 cm Interpretation Summary Normal LV size. Left ventricular systolic function is normal. The estimated ejection fraction is 65 %. Stage 1 diastolic dysfunction. Structurally normal valves. Ordering Physician: Teodoro Latif Performed By: Alyssa Ramirez, MACKENZIE, RVT
--- NOTE | 2019-04-10 08:49 | CON.PCM_ITS ---
Reason for Consult Date of Consultation: 04/10/19 History of Present Illness: The patient is a 73 year old F who presented to the emergency room with sensations of palpitations. She says that she bought a watch which was able to tell her heart rate and she felt that she was skipping beats and having some dwight st discomfort. She denied any dizziness near syncope or syncope and did not have any chest pain as well. In the emergency room she had an EKG done which was thought to be abnormal. It demonstrated sinus bradycardia with Mobitz 1 AV block. She also has a history of hypertension, hyperlipidemia, supraventricular tachyarrhythmia, and a non-ST elevation myocardial infarction. She had an ablation in July 2016 after the episode of supraventricular tachyarrhythmia. She tells me that she fell in June 2018 and had evidence of intracranial hematomas and needed brain surgery. She is been doing well otherwise from the cardiac standpoint. She has had no neck arm or jaw discomfort to suggest angina she has had occasional periods of dizziness. She has been compliant with all her medications. Her physical exam here today demonstrates clear lung mallory regular rate and rhythm and no pedal edema. Cardiology was called to see her due to her dysrhythmia. [] Past Medical History Allergies/Adverse Reactions: Allergies lisinopril Adverse Reaction (Severe, Verified 04/10/19 00:27) Cough Home Medications: Ambulatory Orders Medication Instructions Recorded amlodipine 5 mg tablet 5 mg PO DAILY tab 12/16/17 omeprazole 20 mg tablet,delayed 20 mg PO BID 12/16/17 release cyclobenzaprine 10 mg tablet 10 mg PO TID #30 tab 06/10/18 ferrous sulfate 325 mg (65 mg 325 mg PO DAILY tab 06/10/18 iron) tablet metoprolol succinate ER 50 mg 50 mg PO QDAY #90 tab 11/24/18 tablet,extended release 24 hr ALPRAZolam [Xanax] 0.5 mg PO BID PRN PRN 04/10/19 Garlic 1,000 mg PO DAILY 04/10/19 Metformin HCl 500 mg PO BID 04/10/19 Sertraline HCl [Zoloft] 100 mg PO DAILY 04/10/19 traZODone [Desyrel] 100 mg PO QHS PRN 04/10/19 Past Medical History (Chronic Problems): Chronic Problems (Last Reviewed 11/24/18 @ 11:14 by Teodoro Latif MD) Hx of non-ST elevation myocardial infarction (NSTEMI) (Chronic) NSTEMI 11/25/15 HLD (hyperlipidemia) (Chronic) Supraventricular tachycardia (Chronic) AVNRT ablation 2015 Depression (Chronic) Anxiety (Chronic) Chronic back pain (Chronic) Osteoarthritis (Chronic) Seasonal allergies (Chronic) Heart palpitations (Chronic) Hypertension (Chronic) Surgical History: cholecystectomy, - - Status post AVNRT ablation, history of intracranial surgery for bleed Psychiatric History: No pertinent psych 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 - *Family History Maternal Family History: Family History (Last Reviewed 11/24/18 @ 11:14 by Teodoro Latif MD) Mother Heart disease Myocardial infarction Diabetes Grandfather Heart disease History Items: Diabetes Paternal Family History: Family History (Last Reviewed 11/24/18 @ 11:14 by Teodoro Latif MD) Mother Heart disease Myocardial infarction Diabetes Grandfather Heart disease History Items: No pertinent history Lives: Spouse/ Significant Other Smoking Status: Former smoker Tobacco Use: Non-smoker Alcohol: None Drugs: None Review of Systems - Review of Systems General: Denies: Fever, Night Sweats, Fatigue HEENT: Denies: Vision Change Cardiovascular: Reports: Palpitations. Denies: Chest Discomfort, Shortness of Breath, Orthopnea, PND, Peripheral Edema, Lightheadedness, Dizziness, Near Syncope, Syncope Respiratory: Denies: Cough, Sputum Production, Hemoptysis Gastrointestinal: Denies: Hematemesis, Hematochezia, Melena Genitourinary: Denies: Dysuria, Hematuria Muscoloskeletal: Denies: Myalgias Skin: Denies: Rash Neurological: Denies: Dizziness Psychiatric: Denies: Anxiety Endocrine: Denies: Unexplained Weight Loss Hematologic/ Lymphatic: Denies: Anemia Subjectve: Patient seen and evaluated. Appears to be doing well. Objective: Vital Signs Temp Pulse Resp BP Pulse Ox 98.1 F 50 L 16 168/84 H 98 04/10/19 02:55 04/10/19 07:00 04/10/19 02:55 04/10/19 02:55 04/10/19 03:00 Oxygen Flow Rate (L/min) 2 Oxygen Delivery Method Room Air Weight: 170 lb 3.15 oz Body Mass Index (BMI) 27.4 Intake and Output for Last 24 Hours 04/08/19 04/09/19 04/10/19 23:59 23:59 23:59 Intake Total Balance General: Awake, Alert, Oriented x 3 HEENT: PERRL, EOMI, Sclera Non Icteric Neck: Supple, Good ROM, No Lymph Node Enlargement Lungs: Clear to auscultation Cardiovascular: Regular Rhythm, Normal S1, Normal S2, No Murmurs, No Rubs, No Gallops Vascular: No Carotid Bruits, Normal Femoral Pulses, Normal Radial Pulses, Normal Dorsalis Pedal Pulse, Normal Posterior Tibial Pulses Abdomen: Bowel Sounds Present, Soft, Non Tender, No HSM, No Organomegaly Extremities: No Cyanosis, No Clubbing, No edema Musculoskeletal: No Erythema Skin: No Rashes Lymphatic: No Lymph Node Enlargement Neurological: No Focal Motor or Sensory Deficit Psych/Mental Status: Appropriate 04/10/19 01:05: WBC 4.7, RBC 4.75, Hgb 12.4, Hct 38.9, MCV 81.9, MCH 26.1 L, MCHC 31.9 L, RDW 14.5, RDW Differential 43.4, Plt Count 335, MPV 9.1, Immature Gran % (Auto) 0.000, Neut % (Auto) 52.6, Lymph % (Auto) 30.6, [place]atham % (Auto) 9.6, Eos % (Auto) 6.6 H, Baso % (Auto) 0.6, Absolute Neuts (auto) 2.5, Total Counted Not Reportable 04/10/19 01:05: Sodium 142, Potassium 3.6, Chloride 106, Carbon Dioxide 31.0, Anion Gap 5, BUN 13, Creatinine 0.90, Est GFR (MDRD) Af Amer 79, Est GFR (MDRD) Non-Af 65, BUN/Creatinine Ratio 14.5, Glucose 142 H, Calcium 9.1, Troponin I < 0.015 04/10/19 05:15: Sodium 143, Potassium 3.7, Chloride 107, Carbon Dioxide 31.0, Anion Gap 5, BUN 14, Creatinine 0.84, Est GFR (MDRD) Af Amer 85, Est GFR (MDRD) Non-Af 70, BUN/Creatinine Ratio 16.6, Glucose 113 H, Calcium 8.8, Total Bilirubin 0.30, Troponin I < 0.015 04/10/19 05:15: WBC 4.5, RBC 4.96, Hgb 12.4, Hct 40.3, MCV 81.3, MCH 25.0 L, MCHC 30.8 L, RDW 14.6, RDW Differential 42.6, Plt Count 324, MPV 9.6, Immature Gran % (Auto) 0.200, Neut % (Auto) 51.0, Lymph % (Auto) 33.0, Cheatham % (Auto) 9.6, Eos % (Auto) 5.8 H, Baso % (Auto) 0.4, Absolute Neuts (auto) 2.3, Total Counted Not Reportable Rhythm: EKG: Initial EKG demonstrates sinus bradycardia with a rate of 51 bpm and second-degree type I AV block Assessment/Plan 1. Minimally symptomatic bradycardia * Patient presents with minimally symptomatic bradycardia. EKG reveals Mobitz 1 AV block. This morning the conduction system appears to have improved. Patient was previously on Toprol-XL 50 mg a day which has been discontinued. * My recommendation would be to continue to observe her overnight without this medication and then obtain an outpatient 24-hour Holter monitor. Depending on the findings further recommendations will be made. At this time however I do not think that a pacemaker is warranted. * 2. Hypertension * Blood pressure appears to be under good control with current medical therapy. No changes will be made other than discontinuing the beta-octavia. * We will continue the amlodipine for now. * 3. Status post AVNRT ablation. * She is status post AV ngoc ablation. She does not appear to have had any re currences. We will continue to observe her. * * Thank you for allowing me to participate in the care of your patient. Please don't hesitate to call if any issues arise
--- NOTE | 2019-04-10 08:57 | EKG12_ITS ---
Test Reason : ARRYTHMIA Blood Pressure : / mmHG Vent. Rate : 062 BPM Atrial Rate : 062 BPM P-R Int : 190 ms QRS Dur : 084 ms QT Int : 428 ms P-R-T Axes : 052 -30 022 degrees QTc Int : 434 ms Normal sinus rhythm Left axis deviation Minimal voltage criteria for LVH, may be normal variant Abnormal ECG Confirmed by MARIELLE CASPER, ISIDORO ([id number]), news copy editor LAURA BRUCE ([id number]) on 04/14/2019 11:21:02 AM Referred By: MARIELLE Confirmed By:ISIDORO PALOMARES MD
[2019-04-10] MEDS: Sertraline 100 MG Tablet PO (09:42)
[2019-04-10] MEDS: amLODIPine 10 MG Tablet PO (09:42)
[2019-04-10] MEDS: Ferrous Sulfate 325 MG Tablet PO (09:42)
[2019-04-10] MEDS: metFORMIN HCl 1,000 MG Tablet 1000 MG PO ×2 (09:42→17:21)
[2019-04-10] MEDS: Pantoprazole Sodium 20 MG Tablet PO ×2 (09:42→21:42)
[2019-04-10 11:36] LABS: Bedside Glucose 136 mg/dL (70-110)
--- NOTE | 2019-04-10 16:44 | PCM.HOSP.N ---
Hospitalist Note Patient was seen and examined briefly today, she was placed in the observation status early this morning for complaints of palpitation-she was found in the emergency room to be in a 2-1 second-degree AV block, patient was seen by cardiology today who held her beta-octavia. Patient has no symptoms at the time of my visit, I talked briefly with cardiology about her care. Patient will be reevaluated tomorrow, she will remain on telemetry.
[2019-04-10 17:25] LABS: Bedside Glucose 148 mg/dL (70-110)
[2019-04-10] MEDS: traZODone 100 MG Tablet PO (21:42)
[2019-04-10 22:01] LABS: Bedside Glucose 112 mg/dL (70-110)
[2019-04-11 03:00] VITALS: BP 140/59; PULSE 58; PULSE 62; RESP 16; TEMP 36.7; O2SAT 100
[2019-04-11] MEDS: Heparin Injection (Vial) 5,000 UNIT/ML VIAL 5000 UNIT SC (06:43)
[2019-04-11] MEDS: cycloBENZAPRine HCl 10 MG Tablet PO (06:43)
[2019-04-11 07:01] LABS: Bedside Glucose 104 mg/dL (70-110)
[2019-04-11 07:03] VITALS: PULSE 54
--- NOTE | 2019-04-11 08:33 | PN.CARD_ITS ---
Subjectve: Patient seen and evaluated. Objective: Vital Signs Temp Pulse Resp BP Pulse Ox 98.0 F 54 L 16 140/59 H 100 04/11/19 03:00 04/11/19 07:03 04/11/19 03:00 04/11/19 03:00 04/11/19 03:00 Oxygen Flow Rate (L/min) 2 Oxygen Delivery Method Room Air Weight: 170 lb 3.15 oz Body Mass Index (BMI) 27.4 Intake and Output for Last 24 Hours 04/09/19 04/10/19 04/11/19 23:59 23:59 23:59 Intake Total 1386 / 1386 Balance 1386 / 1386 General: Awake, Alert, Oriented x 3 HEENT: PERRL, EOMI, Sclera Non Icteric Neck: Supple, Good ROM, No Lymph Node Enlargement Lungs: Clear to auscultation Cardiovascular: Regular Rhythm, Normal S1, Normal S2, No Murmurs, No Rubs, No Gallops 04/10/19 08:30: Troponin I < 0.015 Rhythm: EKG: ECHO: Stress Test: Cardiac Cath: PCI: CT Surgery: Holter monitor: EPS: PPM: CXR: Chest CT Scan: Medical Necessity - Tobacco Use Smoking Status: Former smoker Tobacco Use: Non-smoker Assessment/Plan 1. Minimally symptomatic bradycardia * Patient presents with minimally symptomatic bradycardia. EKG reveals Mobitz 1 AV block. This morning the conduction system appears to have improved. Patient was previously on Toprol-XL 50 mg a day which has been discontinued. * My recommendation would be to discharge her today and observe her as an outpatient. * 2. Hypertension * Blood pressure appears to be under good control with current medical therapy. No changes will be made other than discontinuing the beta-octavia. * We will continue the amlodipine for now. * 3. Status post AVNRT ablation. * She is status post AV ngoc ablation. She does not appear to have had any recurrences. We will continue to observe her. * * Thank you for allowing me to participate in the care of your patient. Please don't hesitate to call if any issues arise okay to follow-up as an outpatient.
[2019-04-11 09:30] VITALS: BP 90/67; PULSE 71; RESP 14; TEMP 36.9; O2SAT 100
[2019-04-11] MEDS: Ferrous Sulfate 325 MG Tablet PO (09:35)
[2019-04-11] MEDS: Pantoprazole Sodium 20 MG Tablet PO (09:36)
[2019-04-11] MEDS: Sertraline 100 MG Tablet PO (09:36)
[2019-04-11] MEDS: metFORMIN HCl 1,000 MG Tablet 1000 MG PO (09:36)
[2019-04-11 11:21] LABS: Bedside Glucose 168 mg/dL (70-110)
--- NOTE | 2019-04-11 11:58 | PCM.DC ---
You will use the following diet at home:: Calorie/Carbohydrate Controlled (specify 1200, 1400, etc) - 1899 BETH Your food should be the consistency of: Regular Your liquids should be the consistency of: Regular/Thin Discharge Activity: Return to Normal Activity Weight Bearing Status: Full weight bearing Allergies/Adverse Reactions: Allergies lisinopril Adverse Reaction (Severe, Verified 04/10/19 00:27) Cough Medications to take at Discharge amlodipine 5 mg tablet 5 mg PO DAILY tab 12/16/17 omeprazole 20 mg tablet,delayed release 20 mg PO BID 12/16/17 cyclobenzaprine 10 mg tablet 10 mg PO TID #30 tab 06/10/18 ferrous sulfate 325 mg (65 mg iron) tablet 325 mg PO DAILY tab 06/10/18 ALPRAZolam [Xanax] 0.5 mg PO BID PRN PRN 04/10/19 Garlic 1,000 mg PO DAILY 04/10/19 Metformin HCl 500 mg PO BID 04/10/19 Sertraline HCl [Zoloft] 100 mg PO DAILY 04/10/19 traZODone [Desyrel] 100 mg PO QHS PRN 04/10/19 Primary Care Physician: [facility] Doctor,Out of [Primary Care Provider] - Please follow up with your Primary Care Physician in: IN 1-2 WEEKS Test Results: Test results from this visit will be discussed in further detail at your follow-up appointment, if applicable. Please Follow Up With: Teodoro Latif MD When: IN 2-3 WEEKS-CALL FOR APPOINTMENT
[2019-04-11 12:27] VITALS: BP 143/59; PULSE 77; RESP 14; TEMP 37.2; O2SAT 100
--- NOTE | 2019-04-11 16:10 | DS.PCM_ITS ---
Discharge Date and Diagnosis Date of Admission: 04/10/19 Date of Discharge: 04/11/19 - Primary Discharge Diagnosis #1 symptomatic bradycardia with Mobitz 1 AV block #2 hypertension #3 type 2 diabetes - Secondary Discharge Diagnosis Chronic Problems (Last Reviewed 11/24/18 @ 11:14 by Teodoro Latif MD) Hx of non-ST elevation myocardial infarction (NSTEMI) (Chronic) NSTEMI 11/25/15 HLD (hyperlipidemia) (Chronic) Supraventricular tachycardia (Chronic) AVNRT ablation 2015 Depression (Chronic) Anxiety (Chronic) Chronic back pain (Chronic) Osteoarthritis (Chronic) Seasonal allergies (Chronic) Heart palpitations (Chronic) Hypertension (Chronic) Hospital Course and Treatment Operations: None Procedures: 2-D Echocardiogram Summary of Care Provided: The patient is a 73 year old F who was seen in the emergency room at [facility] with a chief complaint of palpitations. She did not complain of any actual chest pain. Work-up in the emergency room included an EKG which showed a sinus bradycardia 51 with second-degree AV block Mobitz 1, labs are unremarkable and chest x-ray was normal. Patient was placed in observation status on PCU and seen in consultation by cardiology who recommended stopping the patient's beta-octavia and observing the patient. Echocardiogram was performed which showed a normal EF. On 04/11/2019, patient was seen and examined: On examination she appeared in good health and spirits. Vital signs as documented. Skin warm and dry and without overt rashes. Neck without JVD. Lungs clear. Heart exam notable for regular rhythm, normal sounds and absence of murmurs, rubs or gallops. Abdomen unremarkable and without evidence of organomegaly, masses, or abdominal aortic enlargement. Extremities nonedematous. Neuro: Cranial nerves II through XII are grossly intact, no focal motor deficits were noted, sensation to light touch and pinprick is intact. Psych: Patient is alert and oriented x3, she does not appear anxious or depressed On 04/11/2019, patient was seen and examined and felt to be in stable condition for discharge home - Physical Exam Vital Signs Temp Pulse Resp BP Pulse Ox 99 F 77 14 143/59 H 100 04/11/19 12:27 04/11/19 12:27 04/11/19 12:27 04/11/19 12:27 04/11/19 12:27 Oxygen Flow Rate (L/min) 2 Oxygen Delivery Method Room Air Weight: 77.2 kg Body Mass Index (BMI) 27.4 Intake and Output for Last 24 Hours 04/09/19 04/10/19 04/11/19 23:59 23:59 23:59 Intake Total 1386 / 1386 420 / 420 Balance 1386 / 1386 420 / 420 POC Glucose 04/11/19 04/11/19 04/10/19 11:15 06:50 21:54 POC Glucose 168 H 104 112 H 04/10/19 17:18 POC Glucose 148 H Discharge Activity: Return to Normal Activity Weight Bearing Status: Full weight bearing Home Medications: Medications to take at Discharge amlodipine 5 mg tablet 5 mg PO DAILY tab 12/16/17 omeprazole 20 mg tablet,delayed release 20 mg PO BID 12/16/17 cyclobenzaprine 10 mg tablet 10 mg PO TID #30 tab 06/10/18 ferrous sulfate 325 mg (65 mg iron) tablet 325 mg PO DAILY tab 06/10/18 ALPRAZolam [Xanax] 0.5 mg PO BID PRN PRN 04/10/19 Garlic 1,000 mg PO DAILY 04/10/19 Metformin HCl 500 mg PO BID 04/10/19 Sertraline HCl [Zoloft] 100 mg PO DAILY 04/10/19 traZODone [Desyrel] 100 mg PO QHS PRN 04/10/19 Primary Care Physician: Kirsty Crawford,Out of [Primary Care Provider] - Please follow up with your Primary Care Physician in: IN 1-2 WEEKS Please Follow Up With: Teodoro Latif MD When: IN 2-3 WEEKS-CALL FOR APPOINTMENT Disposition: Home Minutes spent on discharge:: 30 Patient Condition:: Stable Medical Necessity - Tobacco Use Smoking Status: Former smoker Tobacco Use: Non-smoker Meaningful Use Info Meaningful Use Diagnoses (Choose all that apply): None applicable Code Visit OBSV E&M: 06947 Observation care discharge
== END 2019-04-11 11:59 | disposition home or self-care (01) ==
LOC: ED 01:33 → PCU 02:31
PROVIDERS: Admitting Provider Internal Medicine; Emergency Provider Emergency Medicine; Family Provider Family Medicine; PCP Family Medicine; Visit Provider Internal Medicine
DX: I44.1 Atrioventricular block, second degree (principal); I10 Essential (primary) hypertension; E11.9 Type 2 diabetes mellitus without complications; I25.2 Old myocardial infarction; E78.5 Hyperlipidemia, unspecified; F32.9 Major depressive disorder, single episode, unspecified; F41.9 Anxiety disorder, unspecified; G89.29 Other chronic pain; M19.90 Unspecified osteoarthritis, unspecified site; K21.9 Gastro-esophageal reflux disease without esophagitis; G47.33 Obstructive sleep apnea (adult) (pediatric); Z79.899 Other long term (current) drug therapy; Z79.84 Long term (current) use of oral hypoglycemic drugs; Z87.891 Personal history of nicotine dependence
CPT/HCPCS: 36415; 71045; 80048; 80053; 82962; 84484; 85025; 93005; 93306; 96360; 96361; 96372; 99218; 99285; J7030; A4216; G0378

== ENCOUNTER → 2019-06-08 14:38 | Outpatient (CLI) | payer MEDICARE, BC, SELFPAY ==
[2019-04-30 08:45] VITALS: BMI 27.6
--- NOTE | 2019-06-08 14:46 | RAD_ITS ---
STUDY: X-RAY - RIGHT KNEE REASON FOR EXAM: Female, 73 years old. Pain TECHNIQUE: 4 view(s) of the knee. COMPARISON: None. FINDINGS: Normal visualized distal femur. Normal visualized proximal tibia and fibula. Normal proximal tibiofibular articulation. There is mild degenerative arthrosis of the medial femorotibial compartment. There is mild degenerative arthrosis of the lateral femorotibial compartment. There is moderate degenerative arthrosis of the patellofemoral articulation. The soft tissue structures are unremarkable. RAD/Knee 4 or More Views IMPRESSION: Degenerative change of the right knee. No visualized fracture. Electronically Signed: Rafia Roe MD at 18:00 EDT Tel , Service support ,
--- NOTE | 2019-06-08 14:46 | RAD_ITS ---
STUDY: X-RAY - LEFT SHOULDER REASON FOR EXAM: Female, 73 years old. Pain TECHNIQUE: 4 view(s) of the shoulder. COMPARISON: None. FINDINGS: Normal glenohumeral articulation. There is minimal degenerative arthrosis of the acromioclavicular joint without inferior osseous spur formation. Normal acromion. Normal humeral head and visualized proximal humerus. The soft tissue structures are unremarkable. Normal visualized pulmonary apex. RAD/Shoulder min 2 Views IMPRESSION: Minimal degenerative change. No visualized acute fracture. Electronically Signed: Rafia Roe MD at 18:03 EDT Tel , Service support ,
--- NOTE | 2019-06-08 14:46 | RAD_ITS ---
STUDY: X-RAY - LEFT KNEE REASON FOR EXAM: Female, 73 years old. Pain TECHNIQUE: 4 view(s) of the knee. COMPARISON: None. FINDINGS: Normal visualized distal femur. Normal visualized proximal tibia and fibula. Normal proximal tibiofibular articulation. There is mild degenerative arthrosis of the medial femorotibial compartment. There is mild degenerative arthrosis of the lateral femorotibial compartment. There is mild degenerative arthrosis of the patellofemoral articulation. The soft tissue structures are unremarkable. RAD/Knee 4 or More Views IMPRESSION: Degenerative arthrosis. Electronically Signed: Rafia Roe MD at 18:01 EDT Tel , Service support ,
--- NOTE | 2019-06-08 14:47 | RAD_ITS ---
STUDY: X-RAY - RIGHT SHOULDER REASON FOR EXAM: Female, 73 years old. Pain TECHNIQUE: 4 view(s) of the shoulder. COMPARISON: None. FINDINGS: Normal glenohumeral articulation. There is moderate degenerative arthrosis of the acromioclavicular joint without inferior osseous spur formation. Normal acromion. Normal humeral head and visualized proximal humerus. The soft tissue structures are unremarkable. Normal visualized pulmonary apex. There is partial visualization of degenerative change in the thoracic spine. RAD/Shoulder min 2 Views IMPRESSION: Degenerative change. No visualized evidence of an acute fracture. Electronically Signed: Rafia Roe MD at 18:05 EDT Tel , Service support ,
[2019-06-08 15:10] LABS: Bacteria 0 SEEN /hpf (None Seen); Mucous, Urine 0 SEEN /hpf (<or=2+); Red Blood Cells-Urine 0 SEEN /hpf (0-5)
[2019-06-08 17:44] LABS: Color, Urine Yellow (Yellow); Glucose, Dipstick Normal (Normal); Ketone-Dipstick Negative (Negative); Leukocyte Esterase-Dipstick Negative /ul (Negative); Nitrite-Dipstick Negative (Negative); Occult Blood-Urine Negative /ul (Negative); Protein-Dipstick Negative (Negative); Specific Gravity, Urine 1.015 (1.002-1.030); Urine Bilirubin Dipstick Negative (Negative); Urine Clarity Sl. Cloudy (Clear); Urine Urobilinogen Normal (Normal)
[2019-06-08 17:53] LABS: Amorphous Sediment 3+ PHOS; Squamous Epithelial Cells - UA 0-5 SEEN /hpf (5-10); White Blood Cells 0 SEEN /hpf (0-5)
[2019-06-08 18:37] LABS: Microalbumin,Random Urine 13.5 mg/L (NO RANGE EST.); Microalbumin:Creatinine Ratio 17.3 mg/g CRE (<30 mg/g CRE)
== END ==
PROVIDERS: Family Provider Family Medicine; PCP Family Medicine; Referring Provider Family Medicine; Visit Provider Family Medicine
DX: M25.511 Pain in right shoulder (principal); M25.512 Pain in left shoulder; M25.561 Pain in right knee; M25.562 Pain in left knee; I10 Essential (primary) hypertension; E03.9 Hypothyroidism, unspecified; E61.1 Iron deficiency; E11.9 Type 2 diabetes mellitus without complications
CPT/HCPCS: 73030; 73564; 81001; 82043; 82570

== ENCOUNTER → 2019-06-09 11:34 | Outpatient (CLI) | payer MEDICARE, BC, SELFPAY ==
[2019-04-30 08:45] VITALS: BMI 27.6
[2019-06-09 12:49] LABS: Absolute Lymphocyte Count 1.08 X10^3/uL (0.83-4.51); Absolute Neutrophil Count 1.8 X10^3/uL (2.0-7.7); Basophil# 0.04 X10^3/uL; Basophil% 1.2 % (0-1); Eosinophils% 5.9 % (0-5); Hematocrit 38.4 % (37-47); Lymphocyte # 1.08 X10^3/ul (4.0); Mean Corp Hgb Conc 31.3 g/dL (32-36); Mean Corpuscular Volume 83.3 fL (81-99); Mean Platelet Vol. 9.5 fl (6.2-12.0); Monocyte% 8.9 % (0-10); NRBC Flagged by Analyzer 0 % (0-5); Neutrophil # 1.75 X10^3/uL (2.7-7.7); Neutrophil % 51.7 % (47-70); Platelet Count 356 K/mm3 (150-450); RBC Distribution Width CV 14.2 % (11.6-14.6); RBC Distribution Width SD 42.8 fl (35.1-43.9); Red Blood Count 4.61 M/mm3 (4.2-5.4); White Blood Count 3.4 K/mm3 (4.4-11.0)
[2019-06-09 13:22] LABS: Vitamin B12 505 pg/mL (211-911)
[2019-06-09 13:25] LABS: Hemoglobin A1c 6.2 % (4.2-6.3)
[2019-06-09 13:39] LABS: AST(SGOT) 18 U/L (15-37); Alanine Aminotransfer ALT/SGPT 18 U/L (13-56); Albumin, Serum 3.9 g/dL (3.2-5.0); Alkaline Phosphatase 77 U/L (45-117); Anion Gap 7 (5-15); BUN 12 mg/dL (7-18); BUN/Creat Ratio 12.1 RATIO (10-20); Calcium,Total 9.1 mg/dL (8.5-10.1); Chloride 106 mmol/L (98-107); Cholesterol 196 mg/dL (200); Creatinine, Serum 0.99 mg/dL (0.55-1.02); EST Glomerular Filtration Rate 58 mL/min (>60); Est Glom Filt Rate - Afr Amer 70 mL/min (>60); Ferritin 71 ng/mL (8-252); Glucose 97 mg/dL (74-106); High Density Lipoprotein 65 mg/dL; Iron 53 ug/dL (50-170); Iron Binding Capacity,Total 289 ug/dL (250-450); PERCENT IRON SATURATION 18.3 % (15.0-55.0); Potassium 3.6 mmol/L (3.5-5.1); Protein, Total 7.9 g/dL (6.4-8.2); Sodium Level 141 mmol/L (136-145); T4 Free Direct 0.95 ng/dL (0.76-1.46); Thyroid Stim Hormone (TSH) 2.66 uIU/mL (0.358-3.74); Triglycerides 87 mg/dL; Very Low Density Lipoprotein 17 mg/dL (5-40)
== END ==
PROVIDERS: Family Provider Family Medicine; PCP Family Medicine; Referring Provider Family Medicine; Visit Provider Family Medicine
DX: E11.9 Type 2 diabetes mellitus without complications (principal); I10 Essential (primary) hypertension; E03.9 Hypothyroidism, unspecified; E61.1 Iron deficiency
CPT/HCPCS: 36415; 80053; 80061; 82607; 82728; 82746; 83036; 83540; 83550; 84439; 84443; 85025

== ENCOUNTER 2019-07-07 10:15 | Outpatient (RCR) | payer MEDICARE, BC, SELFPAY ==
[2019-04-30 08:45] VITALS: BMI 27.6
--- NOTE | 2019-07-07 11:40 | HP.PTEVAL_ITS ---
Patient's Visit Information NORA GARCIA is a 73 year old F referred to Physical Therapy by Santos Lacey MD with a diagnosis of BILATERAL KNEE ARTHRITIS ,BILATERAL SHOULDER ARTHRITIS AND ROTATOR CUFF. Date of Evaluation: 07/07/19 Physical Therapist: Armando Haddad, PT, Cert MDT, OCS - Visit Plan Frequency: 1-2x /Week Duration: 4 Weeks Plan: PT INTERVENTIONS WITH POSTURAL EX'S,RTC /SCAPULAR STRENGTHENING,PRES' QUAD/HAMS /HIP - Subjective Findings: This 73 y/o female presents to physical therapy with bilateral knee and shoulder pain. Patient has had bilateral knee pain and shoulder pain for many years . Locaation global knee pain and shoulder pain.Patient had injection in knee and had x-rays shotlders /knees. Patient with stairs ,extended walking,unable to squt and kneeling. Patient pain affects OH activities with lifting,ADL'S affects housework chores. Pain affects sleeping. Pain affects driving with shoulders. Knee pain becomes stiffness .Patient also c/o fatigue. Patient had anemia.Patient comorbities had brain surgery due to bleeding due to fall last year.Pateint pain affects QOL with ADLS and function. Denies parathesia/tingling.Pain described as ache increases with activity. SOCAIL: mar issa. VOCATION: retired - Pain Bilateral Knee Pain Intensity (Out of 10): 3 Pain Intensity Range: 10 Bilateral Shoulder Pain Intensity (Out of 10): 3 Pain Intensity Range: 10 - Objective POSTURE: mild foward posture. GAIT: reciprocal pattern. PALAPTION: unremarkable. AROM: shoulder flexion/abduction 150 degrees pain at ER,90 degrees ER pain. AROM: supine knee flexion 0-135 degrees. MMT: quads 4- /5,hamstrings 4/5,hip flexion 4-/5,abd 4-/5,ankle 4/5. RTC 4-/5 ,deltoid 3+/5 mild pain. FLEXABLITY: hams min tight - Special Tests R Knee Padmini - Meniscus: Negative R Knee Apley - Meniscus: Negative R Knee Valgus - MCL: Negative R Knee Varus - LCL: Negative R Knee Patellar Grind - PFS: Negative L Knee Padmini - Meniscus: Negative L Knee Apley - Meniscus: Negative L Knee Valgus - MCL: Negative L Knee Varus - LCL: Negative L Knee Patellar Grind - PFS: Negative L Knee Medial Patellar Plica - Plica Syndrome: Negative R Shoulder Supine Impingement Test - RC Tear: Negative R Shoulder Lift Off Test - Subscapular Tear: Negative R Shoulder Drop Sign - IS Test: Negative R Shoulder Empty Can - SS: Positive R Shoulder Neer - Impingement: Positive R Shoulder Medina Silvestre - Impingement: Positive L Shoulder External Rotation Lag Test - RC Tear: Negative L Shoulder Lift Off Test - Subscapular Tear: Negative L Shoulder Drop Sign - IS Test: Negative L Shoulder Empty Can - SS: Positive L Shoulder Belly Press - SupScap: Negative L Shoulder Neer - Impingement: Positive L Shoulder Medina Silvestre - Impingement: Positive - Goals Goal 1:: Independant with HEP Goal Time Frame: 2-4 Weeks Goal 2:: Improve posture for ADLS' Goal Time Frame: 2-4 Weeks Goal 3:: Increase strength Bilateral RTC 4/5,deptoids 4-/5 and quads/hams to 4/5 to improve function and QOL. Goal Time Frame: 2-4 Weeks Goal 4:: Patient decrease knee and shoulderr pain by 50 % or greater to improve function. Goal Time Frame: 2-4 Weeks Goal 5:: Patient to improve quich dash by 5 points or> to improve QOL. Goal Time Frame: 2-4 Weeks - Rehabilitation Potential Physical Therapy Diagnosis: This patient has bilteral knee pain wand shoulder pain with impingement sighns with weakness shoulders ,pain ,quads/hams weakness affects standing,walking and OH activities with shoulders. Rehabilitation Potential: Good - Anticipated Interventions Patient/Client Instruction: Educate patient on: Condition, Plan of Care For the Purpose of:: To decrease pain, To increase ROM, To improve muscle performance and motor function, To improve ability to perform ADL's, To increase tolerance to activity/condition/position, To improve ability of physical actions for home/community/work/leisure, To improve health of tissue, To decrease soft tissue restriction, To increase flexibility/ROM, To reduce risk of recurrence, To improve ability to perform tasks related to life management Therapeutic Exercise to Include: Strength training, Postural training, Flexibilty training, Active ROM, Scapular Strength/Stabilization Comment: RTC /QUADS/HAMS For the Purpose of:: To decrease pain, To increase ROM, To improve muscle performance and motor function, To improve ability to perform ADL's, To increase tolerance to activity/condition/position, To improve performance and independence with ADL's, To improve ability of physical actions for home/community/work/leisure, To improve gait and locomotor functions, To improve health of tissue, To decrease soft tissue restriction, To improve ability to perform tasks related to life management TENS: Yes IF ES: Yes Cryotherapy (ice pack, ice massage): Yes Thermo therapy (hot pack): Yes Ultrasound (thermal/non thermal): Yes For the Purpose of:: To decrease pain, To decrease swelling/inflammation, To improve nutrient delivery to tissue, To improve health of tissue, To decrease soft tissue restriction Thank you for the opportunity to evaluate your patient. For Medicare and Medicare HMO plans, please review the plan of care and approve it. It will need to be FAXED BACK to us at [phone] for Medicare purposes. For Medicare only, by signing this I certify the plan of care. Please let me know if there are questions or concerns regarding this plan of care. Physician Signature: Date:
== END 2019-07-07 19:00 | disposition home or self-care (01) ==
LOC: PT 10:15
PROVIDERS: Family Provider Family Medicine; PCP Family Medicine; Referring Provider Family Medicine; Visit Provider Family Medicine
DX: M17.0 Bilateral primary osteoarthritis of knee (principal); M19.012 Primary osteoarthritis, left shoulder; M19.011 Primary osteoarthritis, right shoulder; M75.22 Bicipital tendinitis, left shoulder; M75.21 Bicipital tendinitis, right shoulder
CPT/HCPCS: 97110; 97162; 97164

== ENCOUNTER → 2019-10-04 10:32 | Outpatient (CLI) | payer MEDICARE, BC, SELFPAY ==
[2019-04-30 08:45] VITALS: BMI 27.6
[2019-10-04 12:54] LABS: AST(SGOT) 14 U/L (15-37); Alanine Aminotransfer ALT/SGPT 21 U/L (13-56); Albumin, Serum 3.7 g/dL (3.2-5.0); Alkaline Phosphatase 94 U/L (45-117); Anion Gap 4 (5-15); BUN 13 mg/dL (7-18); BUN/Creat Ratio 14.4 RATIO (10-20); Calcium,Total 9.3 mg/dL (8.5-10.1); Chloride 108 mmol/L (98-107); Cholesterol 228 mg/dL (200); EST Glomerular Filtration Rate 65 mL/min (>60); Est Glom Filt Rate - Afr Amer 78 mL/min (>60); Ferritin 64 ng/mL (8-252); Globulin 3.8 g/dL (2.2-4.2); Glucose 191 mg/dL (74-106); High Density Lipoprotein 68 mg/dL; Iron 44 ug/dL (50-170); Iron Binding Capacity,Total 281 ug/dL (250-450); Potassium 3.6 mmol/L (3.5-5.1); Protein, Total 7.5 g/dL (6.4-8.2); Sodium Level 141 mmol/L (136-145); T4 Free Direct 0.81 ng/dL (0.76-1.46); Triglycerides 111 mg/dL; Very Low Density Lipoprotein 22 mg/dL (5-40)
[2019-10-04 12:55] LABS: Absolute Lymphocyte Count 1.02 X10^3/uL (0.83-4.51); Absolute Neutrophil Count 2.4 X10^3/uL (2.0-7.7); Basophil# 0.03 X10^3/uL; Basophil% 0.8 % (0-1); Eosinophil# 0.23 X10^3/uL; Eosinophils% 5.8 % (0-5); Hematocrit 40.1 % (37-47); Hemoglobin 12.4 g/dL (12.0-15.0); Lymphocyte # 1.02 X10^3/ul (4.0); Lymphocyte % 25.5 % (19-41); Mean Corp Hgb Conc 30.9 g/dL (32-36); Mean Corpuscular Hgb 26.2 pg (27.0-32.0); Mean Corpuscular Volume 84.6 fL (81-99); Mean Platelet Vol. 9.7 fl (6.2-12.0); Monocyte# 0.31 X10^3/uL; Monocyte% 7.8 % (0-10); NRBC Flagged by Analyzer 0 % (0-5); Neutrophil % 59.8 % (47-70); Platelet Count 298 K/mm3 (150-450); RBC Distribution Width CV 13.6 % (11.6-14.6); Red Blood Count 4.74 M/mm3 (4.2-5.4)
[2019-10-04 12:56] LABS: Hemoglobin A1c 6.4 % (4.2-6.3)
== END ==
PROVIDERS: Family Provider Family Medicine; PCP Family Medicine; Visit Provider Family Medicine
DX: E03.9 Hypothyroidism, unspecified (principal); E61.1 Iron deficiency; E11.9 Type 2 diabetes mellitus without complications; I10 Essential (primary) hypertension
CPT/HCPCS: 36415; 80053; 80061; 82728; 83036; 83540; 83550; 84439; 84443; 85025

== ENCOUNTER → 2020-04-24 08:41 | Outpatient (CLI) | payer MEDICARE, BC, SELFPAY ==
[2019-04-30 08:45] VITALS: BMI 27.6
[2020-04-24 09:56] LABS: Absolute Neutrophil Count 1.8 X10^3/uL (2.0-7.7); Basophil# 0.03 X10^3/uL; Basophil% 0.9 % (0-1); Eosinophil# 0.27 X10^3/uL; Eosinophils% 7.8 % (0-5); Hematocrit 39.9 % (37-47); Hemoglobin 12.2 g/dL (12.0-15.0); Lymphocyte % 28.9 % (19-41); Mean Corp Hgb Conc 30.6 g/dL (32-36); Mean Corpuscular Hgb 26.2 pg (27.0-32.0); Mean Corpuscular Volume 85.6 fL (81-99); Mean Platelet Vol. 9.9 fl (6.2-12.0); Monocyte# 0.34 X10^3/uL; Monocyte% 9.8 % (0-10); NRBC Flagged by Analyzer 0 % (0-5); Neutrophil # 1.81 X10^3/uL (2.7-7.7); Neutrophil % 52.3 % (47-70); Platelet Count 325 K/mm3 (150-450); RBC Distribution Width CV 13.3 % (11.6-14.6); RBC Distribution Width SD 41.6 fl (35.1-43.9); Red Blood Count 4.66 M/mm3 (4.2-5.4); White Blood Count 3.5 K/mm3 (4.4-11.0)
[2020-04-24 10:11] LABS: ALB/GLOB Ratio 1.1 RATIO (0.9-2.4); AST(SGOT) 20 U/L (15-37); Alanine Aminotransfer ALT/SGPT 20 U/L (13-56); Albumin, Serum 3.9 g/dL (3.2-5.0); Alkaline Phosphatase 77 U/L (45-117); BUN 10 mg/dL (7-18); BUN/Creat Ratio 12.3 RATIO (10-20); Cholesterol 157 mg/dL (200); Creatinine, Serum 0.81 mg/dL (0.55-1.02); EST Glomerular Filtration Rate 73 mL/min (>60); Est Glom Filt Rate - Afr Amer 89 mL/min (>60); Globulin 3.6 g/dL (2.2-4.2); Glucose 141 mg/dL (74-106); Protein, Total 7.5 g/dL (6.4-8.2); Triglycerides 100 mg/dL
[2020-04-24 10:12] LABS: Anion Gap 5 (5-15); Chloride 106 mmol/L (98-107); Ferritin 78 ng/mL (8-252); High Density Lipoprotein 61 mg/dL; Iron 55 ug/dL (50-170); Iron Binding Capacity,Total 322 ug/dL (250-450); Potassium 3.5 mmol/L (3.5-5.1); Sodium Level 141 mmol/L (136-145); Very Low Density Lipoprotein 20 mg/dL (5-40)
[2020-04-24 10:21] LABS: Hemoglobin A1c 6.4 % (3.8-5.6)
== END ==
PROVIDERS: PCP Family Medicine; Referring Provider Family Medicine; Visit Provider Family Medicine
DX: I10 Essential (primary) hypertension (principal); E11.9 Type 2 diabetes mellitus without complications; E61.1 Iron deficiency; E78.5 Hyperlipidemia, unspecified
CPT/HCPCS: 36415; 80053; 80061; 82728; 83036; 83540; 83550; 83735; 85025

== ENCOUNTER → 2020-06-06 17:01 | Outpatient (CLI) | payer MEDICARE, BC, SELFPAY ==
[2019-04-30 08:45] VITALS: BMI 27.6
--- NOTE | 2020-06-06 17:04 | RAD_ITS ---
STUDY: X-RAY - LEFT ANKLE REASON FOR EXAM: Female, 74 years old. recent fall, ankle has been swollen and painful for several days TECHNIQUE: 3 view(s) of the ankle. COMPARISON: None. FINDINGS: Normal visualized distal tibia and fibula. Normal medial and lateral malleoli. Normal tibiotalar articulation and ankle mortise. Normal visualized talus and calcaneus. The visualized subtalar, talonavicular, calcaneocuboid and tarsal articulations are normal. The soft tissue structures are unremarkable. RAD/Ankle min 3 Views IMPRESSION: Normal x-ray examination of the ankle. Electronically Signed: Rodolfo Eric MD at 21:50 EDT , Service support ,
== END ==
PROVIDERS: PCP Family Medicine; Referring Provider Family Medicine; Visit Provider Family Medicine
DX: M25.572 Pain in left ankle and joints of left foot (principal)
CPT/HCPCS: 73610

== ENCOUNTER → 2020-08-03 09:55 | Outpatient (CLI) | payer MEDICARE, BC, SELFPAY ==
[2019-04-30 08:45] VITALS: BMI 27.6
--- NOTE | 2020-08-03 09:59 | BI_ITS ---
MAMMOGRAPHY - BILATERAL SCREENING REASON FOR EXAM: Female, 75 years old. Routine annual screening examination. PERTINENT HISTORY: Non-contributory. TECHNIQUE: Digital bilateral breast regan (3D mammographic acquisition) in the CC and MLO projections. 2-D mediolateral oblique (MLO) and craniocaudad (CC) views of both breasts were obtained. CAD: Full Field Digital Mammography with Computer Added Detection was performed. COMPARISON: No comparison mammograms available at this time. If any prior films become available, an addendum to this report can be generated. FINDINGS: Breast Composition: There are scattered areas of fibroglandular density. There are no dominant masses or suspicious calcifications. No other significant abnormalities are identified. There has been no significant change since the prior study. BI/SCREEN MAMM (CAD) W/REGAN BILAT IMPRESSION: Stable bilateral screening mammogram. Yearly follow-up mammogram recommended. (A) ASSESSMENT CATEGORY: BIRADS Category 1: Negative. A letter regarding these results will be sent to the patient by the facility within 30 days. Approximately 10% of breast cancers are not detected by mammography. A normal mammogram should not delay biopsy of a clinically suspicious abnormality. [id number] Electronically Signed: Romero Gonzáles, at 12:46 EST , Service support ,
--- NOTE | 2020-08-03 10:43 | BD_ITS ---
STUDY: DUAL ENERGY X-RAY ABSORPTIOMETRY / DXA REASON FOR EXAM: Female, 75 years old. 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 COMPARISON: None. FINDINGS: Lumbar Spine (L1-L4): g/cm2 (1.186) / T-score (0.2) / Z-score (1.3) Findings are suggestive of normal bone density with a low fracture risk. Left Femur Total: g/cm2 (0.980) / T-score (-0.2) / Z-score (0.6) Left Femoral Neck: g/cm2 (0.956) / T-score (-0.6) / Z-score (0.5) Right Femur Total: g/cm2 (0.988) / T-score (-0.2) / Z-score (0.7) Right Femoral Neck: g/cm2 (0.961) / T-score (-0.6) / Z-score (0.5) BD/Dexa Bone Density Study IMPRESSION: The patient is considered normal as outlined below according to World Neo Organization (WHO) criteria with a low fracture risk. Reference Information: The T-score is the number of standard deviations above or below the standard which is normal for young adults at their peak bone mineral density. The World Health Organization (WHO) interprets the T-scores as follows: Above -1 Normal bone density Between -1 and -2.5 Osteopenia Equal to / or below -2.5 Osteoporosis As a practical clinical guideline, osteopenia may be graded as follows: Mild -1 through -1.5 Moderate -1.6 through -2.0 Severe -2.1 through -2.4 The Z-score is the number of standard deviations above or below age-matched controls. A Z-score of less than -1.5 would be considered abnormal. References: 1. NIH Osteoporosis and Related Bone Diseases www osteo.org 2. International Society for Clinical Densitometry www iscd.org 3. National Osteoporosis Foundation www nof.org Electronically Signed: Romero Gonzáles, at 15:52 EST , Service support ,
== END ==
PROVIDERS: PCP Family Medicine; Referring Provider Family Medicine; Visit Provider Family Medicine
DX: Z12.31 Encounter for screening mammogram for malignant neoplasm of breast (principal); Z78.0 Asymptomatic menopausal state
CPT/HCPCS: 77063; 77067; 77080

== ENCOUNTER → 2020-10-04 10:17 | Outpatient (CLI) | payer MEDICARE, BC, SELFPAY ==
[2019-04-30 08:45] VITALS: BMI 27.6
[2020-10-04 10:27] LABS: Bacteria 0 SEEN /hpf (None Seen); Mucous, Urine 0 SEEN /hpf (<or=2+); Red Blood Cells-Urine 0 SEEN /hpf (0-5)
[2020-10-04 10:52] LABS: Color, Urine Yellow (Yellow); Glucose, Dipstick NEGATIVE (Normal); Ketone-Dipstick Negative (Negative); Urine Bilirubin Dipstick 1 mg/dL (Negative); Urine Clarity Clear (Clear)
[2020-10-04 10:53] LABS: Leukocyte Esterase-Dipstick 100 /ul (Negative); Nitrite-Dipstick Negative (Negative); Occult Blood-Urine 25 /ul (Negative); Protein-Dipstick 15 mg/dl (Negative); Urine Urobilinogen 1 mg/dl (Normal)
[2020-10-04 11:03] LABS: Squamous Epithelial Cells - UA 0-5 SEEN /hpf (5-10); White Blood Cells 0-5 SEEN /hpf (0-5)
[2020-10-04 11:06] LABS: Hemoglobin A1c 6.3 % (3.8-5.6)
[2020-10-04 11:32] LABS: Absolute Lymphocyte Count 1.04 X10^3/uL (0.83-4.51); Absolute Neutrophil Count 1.9 X10^3/uL (2.0-7.7); Basophil# 0.04 X10^3/uL; Basophil% 1.1 % (0-1); Eosinophil# 0.27 X10^3/uL; Eosinophils% 7.6 % (0-5); Hematocrit 39.2 % (37-47); Hemoglobin 12.2 g/dL (12.0-15.0); Lymphocyte # 1.04 X10^3/ul (4.0); Lymphocyte % 29.2 % (19-41); Mean Corp Hgb Conc 31.1 g/dL (32-36); Mean Corpuscular Hgb 26.2 pg (27.0-32.0); Mean Corpuscular Volume 84.1 fL (81-99); Mean Platelet Vol. 9.6 fl (6.2-12.0); Monocyte# 0.28 X10^3/uL; Monocyte% 7.9 % (0-10); NRBC Flagged by Analyzer 0 % (0-5); Neutrophil # 1.92 X10^3/uL (2.7-7.7); Neutrophil % 53.9 % (47-70); Platelet Count 315 K/mm3 (150-450); RBC Distribution Width CV 13.5 % (11.6-14.6); RBC Distribution Width SD 41.2 fl (35.1-43.9); Red Blood Count 4.66 M/mm3 (4.2-5.4); White Blood Count 3.6 K/mm3 (4.4-11.0)
[2020-10-04 11:33] LABS: AST(SGOT) 16 U/L (15-37); Alanine Aminotransfer ALT/SGPT 17 U/L (13-56); Albumin, Serum 3.7 g/dL (3.2-5.0); Alkaline Phosphatase 83 U/L (45-117); Anion Gap 4 (5-15); BUN 13 mg/dL (7-18); BUN/Creat Ratio 16.4 RATIO (10-20); Calcium,Total 8.7 mg/dL (8.5-10.1); Chloride 111 mmol/L (98-107); Cholesterol 169 mg/dL (200); Creatinine, Serum 0.79 mg/dL (0.55-1.02); EST Glomerular Filtration Rate 75 mL/min (>60); Est Glom Filt Rate - Afr Amer 90 mL/min (>60); Ferritin 100 ng/mL (8-252); Globulin 3.7 g/dL (2.2-4.2); Glucose 104 mg/dL (74-106); High Density Lipoprotein 59 mg/dL; Iron 61 ug/dL (50-170); Iron Binding Capacity,Total 263 ug/dL (250-450); Potassium 3.5 mmol/L (3.5-5.1); Protein, Total 7.4 g/dL (6.4-8.2); Sodium Level 143 mmol/L (136-145); Triglycerides 85 mg/dL; Very Low Density Lipoprotein 17 mg/dL (5-40)
== END ==
PROVIDERS: PCP Family Medicine; Referring Provider Family Medicine; Visit Provider Family Medicine
DX: E78.5 Hyperlipidemia, unspecified (principal); I10 Essential (primary) hypertension; E61.1 Iron deficiency; E11.9 Type 2 diabetes mellitus without complications
CPT/HCPCS: 36415; 80053; 80061; 81001; 82728; 83036; 83540; 83550; 85025

== ENCOUNTER → 2020-10-06 11:42 | Outpatient (CLI) | payer MEDICARE, BC, SELFPAY ==
[2019-04-30 08:45] VITALS: BMI 27.6
--- NOTE | 2020-10-06 11:47 | RAD_ITS ---
STUDY: X-RAY - CERVICAL SPINE REASON FOR EXAM: Female, 75 years old. CHRONIC NECK PAIN, UNKNOWN INJURY TECHNIQUE: 3 view(s) of the cervical spine were obtained. COMPARISON: None FINDINGS: Normal anterior atlantoaxial articulation. Normal odontoid process. Normal cervical lordosis. There is multi-level endplate spondylosis. There is multi-level degenerative disc disease with multilevel disc space narrowing. Normal visualized intervertebral neuroforamina. The soft tissue structures are unremarkable. RAD/Cerv Spine 2 or 3 Views IMPRESSION: Moderate degenerative disc disease lower cervical spine. Electronically Signed: Óscar Lynch MD at 17:25 EST Tel , Service support ,
== END ==
PROVIDERS: PCP Family Medicine; Referring Provider Family Medicine; Visit Provider Family Medicine
DX: M54.2 Cervicalgia (principal)
CPT/HCPCS: 72040

== ENCOUNTER 2020-10-08 22:34 | Emergency (ER) | payer MEDICARE, BC, SELFPAY ==
[2019-04-30 08:45] VITALS: BMI 27.6
[2020-10-08 22:34] VITALS: BP 196/90; PULSE 51; RESP 18; TEMP 35.3; O2SAT 100; BMI 28.2
--- NOTE | 2020-10-08 22:55 | ED.DCSUM_ITS ---
History of Present Illness Chief Complaint: Hypertension Informant: Patient Onset: Today Associated Symptoms: feels heartbeat. occasionally irregular. Narrative: Patient started having symptoms last night, felt like she could feel her heart beating in her abdomen and chest with each beat without pain, and occasionally felt like it was irregular for a short period of time. Most of the day today she was asymptomatic, she felt it again this evening 3 or 4 hours ago around 7 PM, and as a result of this took her blood pressure medication amlodipine 10 mg that she forgot to take earlier. She states she usually takes it early afternoon after lunch or so, occasionally forgets to take it, on average once or twice a week. She states she took it yesterday. She is on no other blood pressure medications. The dose has not been changed recently. Since she continued feeling the symptoms after taking her medication, she checked her blood pressure and was alarmed when it was 189 systolic. She denies any other symptoms today or yesterday including dyspnea, lightheadedness or syncope, headache, vision changes, focal neurologic symptoms, disorientation, vomiting, sweating. She has had minor brief chest pains that she states she frequently gets randomly, not daily but close, for years. She states it feels like a mild stinging in her left chest without radiation. It does not coincide with the occasional irregular heartbeat. Patient also states that last year sometime when she was sent to [place] after her heart attack she had an ablation done and states she has had rhythm disturbances for decades. She associates her minor chest discomfort with dysrhythmia for some reason, and states that it has been improved since her ablation. She is on no antidysrhythmics. She denies recent illness including COVID-19 or contact with anyone that she knows of who has had it. - Past Medical History (1) Mobitz (type) I (Wenckebach's) atrioventricular block Status: Chronic (2) Essential (primary) hypertension Status: Chronic (3) History of non-ST elevation myocardial infarction (NSTEMI) Status: Resolved (4) HLD (hyperlipidemia) Status: Chronic (5) Supraventricular tachycardia Status: Chronic Comment: AVNRT ablation 2016 Past Medical History - Allergies and Home Meds Allergies/Adverse Reactions: Allergies lisinopril Adverse Reaction (Severe, Verified 10/08/20 22:37) Cough Primary Care Physician: Santos Lacey MD [Primary Care Provider] - Surgical History: cholecystectomy, - - Status post AVNRT ablation, history of intracranial surgery for bleed - Family History Maternal Family History: Family History (Last Reviewed 04/30/19 @ 09:[address] Teodoro Latif MD) Mother Heart disease Myocardial infarction Diabetes Grandfather Heart disease Family History: Reports: Diabetes Paternal Family History: Family History (Last Reviewed 04/30/19 @ 09:[address] Teodoro Latif MD) Mother Heart disease Myocardial infarction Diabetes Grandfather Heart disease Family History: Reports: No pertinent history Review of Systems General: Denies: Chills, Fever, Malaise, Sweats Eyes: Denies: Visual changes - bilaterally, Diplopia ENT: Denies: Bilateral ear pain, Rhinorrhea, Sore throat Cardiovascular: Reports: Chest pain, Palpitations. Denies: Heart racing Respiratory: Denies: Dyspnea, Cough, Dyspnea on exertion Gastrointestinal: Denies: Abdominal pain, Nausea, Vomiting, Diarrhea, Melena, Hematochezia Genitourinary: Denies: Dysuria, Hematuria, Frequency Musculoskeletal: Denies: Neck pain, Back pain, Extremity Pain Skin: Denies: Rash, Wounds Neurological: Denies: Headache, Weakness, Numbness Physical Exam Vital Signs/Narrative: Vital Signs Temp Pulse Resp BP Pulse Ox 10/08/20 22:34 95.5 F L 51 L 18 196/90 H 100 Inital Vital Signs reviewed: Yes General: Well nourished, Well developed, No Acute Distress - Well-appearing, conversive in full sentences Head: Normocephalic, Atraumatic Eyes: Perrl, EOMI ENT: Moist mucous membranes, No rhinorrhea Neck: Supple, Nontender Cardiovascular: Regular rate, Regular rhythm, No murmurs, Bradycardia - borderline. Negative for: Irregular Respiratory: No distress, CTA bilaterally, Chest nontender Abdomen: Soft, Nontender, Nondistended, Normal bowel sounds Back: Nontender, Normal Inspection Extremities: Nontender, No edema. Negative for: Calf Tenderness Skin: Normal color, No rash, No Trauma Neurological: Alert, Oriented x3, Cranial nerves II-XII grossly intact, Normal Strength, Normal Sensation, Normal Gait Psychological: Normal affect, Normal Mood Diagnostic/Tx/Re-eval Laboratory Tests 10/08/20 Range/Units 23:00 Troponin I < 0.015 (<0.045) ng/mL - Rhythm Strip Rhythm Strip: Sinus Rhythm Rate: 45 Ectopy: None - EKG Initial EKG Interpretation: No Acute Injury Pattern, Sinus Bradycardia, AV Block - type 1 Mobitz Prior: Unchanged - Medical Decision Making 4 days ago patient had CBC and chemistries performed, renal function was normal and there were no other major abnormalities. Therefore I do not think those need to be repeated today. I did do a troponin to ensure she had no cardiac injury, as above it is normal. Her EKG shows bradycardia and type I Mobitz AV block, consistent with her old EKGs and previous diagnoses in the EMR from cardiology. She was given clonidine, her pressure came down to 163/63. She is feeling relatively well. She does not have any concerning symptoms to warrant further emergent work-up tonight, and I am comfortable with her going home and taking an extra dose of amlodipine, remembering to take her medications, and follow up with her doctor after the weekend. She is comfortable w/ this plan. ED Disposition - Plan for ED Patient: Disposition: Home or Assisted Living Diagnosis: Episode of hypertension, Non-cardiac chest pain, Mobitz (type) I (Wenckebach's) atrioventricular block Instructions: ED High Blood Pressure ... Referrals: Santos Lacey MD [Primary Care Provider] - 5-7 Days (and/or Dr. Latif) Additional Instructions: Take an extra dose of your amlodipine in the morning.
--- NOTE | 2020-10-08 22:55 | EKG12_ITS ---
Test Reason : HYPERTENSION Blood Pressure : / mmHG Vent. Rate : 041 BPM Atrial Rate : 061 BPM P-R Int : 000 ms QRS Dur : 092 ms QT Int : 458 ms P-R-T Axes : 005 098 070 degrees QTc Int : 377 ms Sinus rhythm with 2nd degree A-V block (Mobitz I) Rightward axis Abnormal ECG Confirmed by MARIELLE CASPER, ISIDORO ([id number]), map editor WARNER HANSEN ([id number]) on 10/09/2020 10:38:45 AM Referred By: ARMINDA Confirmed By:ISIDORO PALOMARES MD
[2020-10-08] MEDS: cloNIDine HCl 0.2 MG Tablet PO (23:01)
[2020-10-08 23:19] VITALS: BP 163/63
[2020-10-08 23:38] VITALS: BP 163/63; PULSE 50
== END 2020-10-08 23:39 | disposition home or self-care (01) ==
PROVIDERS: Emergency Provider Emergency Medicine; PCP Family Medicine
DX: I10 Essential (primary) hypertension (principal); R07.89 Other chest pain; I44.1 Atrioventricular block, second degree; I25.2 Old myocardial infarction; E78.5 Hyperlipidemia, unspecified; Z79.899 Other long term (current) drug therapy
CPT/HCPCS: 36415; 84484; 93005; 99284

== ENCOUNTER 2020-12-07 08:41 | Outpatient (RCR) | payer MEDICARE, SELFPAY ==
[2020-10-19 10:46] VITALS: BMI 27.8
[2020-12-07] MEDS: COVID-19 VACC, MRNA(PFIZER)/PF 30 MCG/0.3 ML SYRINGE IM (14:24)
[2020-12-28] MEDS: COVID-19 VACC, MRNA(PFIZER)/PF 30 MCG/0.3 ML SYRINGE IM (14:32)
== END 2021-03-06 23:59 ==
LOC: IMMUN 08:41
PROVIDERS: PCP Family Medicine; Visit Provider Family Medicine
DX: Z23 Encounter for immunization (principal)
CPT/HCPCS: 0001A; 0002A; 91300

== ENCOUNTER → 2021-02-03 07:38 | Outpatient (CLI) | payer MEDICARE, SELFPAY ==
[2020-10-19 10:46] VITALS: BMI 27.8
[2021-02-03 08:11] LABS: Bacteria 0 SEEN /hpf (None Seen); Mucous, Urine 0 SEEN /hpf (<or=2+); Red Blood Cells-Urine 0 SEEN /hpf (0-5); Squamous Epithelial Cells - UA 0 SEEN /hpf (5-10); White Blood Cells 0 SEEN /hpf (0-5)
[2021-02-03 08:46] LABS: Absolute Lymphocyte Count 1.04 X10^3/uL (0.83-4.51); Basophil# 0.03 X10^3/uL; Basophil% 0.8 % (0-1); Eosinophil# 0.22 X10^3/uL; Hematocrit 40.4 % (37-47); Hemoglobin 12.4 g/dL (12.0-15.0); Lymphocyte # 1.04 X10^3/ul (0.83-4.51); Lymphocyte % 28.4 % (19-41); Mean Corp Hgb Conc 30.7 g/dL (32-36); Mean Corpuscular Hgb 26.7 pg (27.0-32.0); Mean Corpuscular Volume 86.9 fL (81-99); Mean Platelet Vol. 9.5 fl (6.2-12.0); Monocyte# 0.32 X10^3/uL; Monocyte% 8.7 % (0-10); NRBC Flagged by Analyzer 0 % (0-5); Neutrophil # 2.04 X10^3/uL (2.7-7.7); Neutrophil % 55.8 % (47-70); Platelet Count 317 K/mm3 (150-450); RBC Distribution Width CV 13.4 % (11.6-14.6); RBC Distribution Width SD 42.1 fl (35.1-43.9); Red Blood Count 4.65 M/mm3 (4.2-5.4); White Blood Count 3.7 K/mm3 (4.4-11.0)
[2021-02-03 08:52] LABS: Color, Urine Yellow (Yellow); Glucose, Dipstick Normal (Normal); Ketone-Dipstick Negative (Negative); Leukocyte Esterase-Dipstick Negative /ul (Negative); Nitrite-Dipstick Negative (Negative); Occult Blood-Urine Negative /ul (Negative); Protein-Dipstick Negative (Negative); Urine Bilirubin Dipstick Negative (Negative); Urine Clarity Clear (Clear); Urine Urobilinogen Normal (Normal)
[2021-02-03 09:15] LABS: Microalbumin,Random Urine 10.2 mg/L (NO RANGE EST.); Microalbumin:Creatinine Ratio 6.8 mg/g CRE (<30 mg/g CRE)
[2021-02-03 09:17] LABS: Amphetamine Urine VISTA NEGATIVE (<1000 ng/mL); Barbiturate Urine VISTA NEGATIVE (< 200 ng/mL); Benzodiazepine Urine VISTA NEGATIVE (< 200 ng/mL); Cocaine Urine VISTA NEGATIVE (< 300 ng/mL); Ecstacy Urine VISTA NEGATIVE (< 500 ng/mL); Methadone Urine VISTA NEGATIVE (< 300 ng/mL); PCP Urine VISTA NEGATIVE (< 25 ng/mL); THC Urine VISTA NEGATIVE (< 50 ng/mL); Vista UDS pH Range 7
[2021-02-03 09:23] LABS: ALB/GLOB Ratio 1.1 RATIO (0.9-2.4); AST(SGOT) 15 U/L (15-37); Alanine Aminotransfer ALT/SGPT 18 U/L (13-56); Albumin, Serum 3.9 g/dL (3.2-5.0); Alkaline Phosphatase 75 U/L (45-117); Amorphous Sediment 1+; Anion Gap 4 (5-15); BUN 10 mg/dL (7-18); BUN/Creat Ratio 14.2 RATIO (10-20); Calcium,Total 8.8 mg/dL (8.5-10.1); Chloride 107 mmol/L (98-107); Cholesterol 151 mg/dL (200); Creatinine, Serum 0.71 mg/dL (0.55-1.02); EST Glomerular Filtration Rate 86 mL/min (>60); Est Glom Filt Rate - Afr Amer 104 mL/min (>60); Ferritin 95 ng/mL (8-252); Globulin 3.5 g/dL (2.2-4.2); Glucose 108 mg/dL (74-106); High Density Lipoprotein 75 mg/dL; Iron 47 ug/dL (50-170); Iron Binding Capacity,Total 278 ug/dL (250-450); Potassium 3.6 mmol/L (3.5-5.1); Protein, Total 7.4 g/dL (6.4-8.2); Sodium Level 143 mmol/L (136-145); Thyroid Stim Hormone (TSH) 4.37 uIU/mL (0.358-3.74); Triglycerides 83 mg/dL; Very Low Density Lipoprotein 17 mg/dL (5-40)
[2021-02-03 09:25] LABS: Hemoglobin A1c 5.8 % (3.8-5.6)
== END ==
PROVIDERS: PCP Family Medicine; Referring Provider Family Medicine; Visit Provider Family Medicine
DX: E61.1 Iron deficiency (principal); E11.9 Type 2 diabetes mellitus without complications; I10 Essential (primary) hypertension; F41.9 Anxiety disorder, unspecified
CPT/HCPCS: 36415; 80053; 80061; 80307; 81001; 82043; 82570; 82728; 83036; 83540; 83550; 84443; 85025

== ENCOUNTER → 2021-02-06 11:01 | Outpatient (CLI) | payer MEDICARE, SELFPAY ==
[2020-10-19 10:46] VITALS: BMI 27.8
[2021-02-09 12:46] LABS: Anti-Thyroglobulin AB < 1.0 IU/mL (0.0-0.9); Thyroglobulin, Serum Qt. 13.8 ng/mL (1.5-38.5); Thyroid Peroxidase AB 11 IU/mL (0-34)
== END ==
PROVIDERS: PCP Family Medicine; Referring Provider Family Medicine; Visit Provider Family Medicine
DX: F41.9 Anxiety disorder, unspecified (principal); R79.89 Other specified abnormal findings of blood chemistry
CPT/HCPCS: 36415; 84432; 84439; 86376; 86800

== ENCOUNTER → 2021-06-01 11:24 | Outpatient (CLI) | payer MEDICARE, SELFPAY ==
[2021-06-01 11:46] LABS: Absolute Lymphocyte Count 0.92 X10^3/uL (0.83-4.51); Absolute Neutrophil Count 1.5 X10^3/uL (2.0-7.7); Basophil# 0.02 X10^3/uL; Basophil% 0.7 % (0-1); Eosinophil# 0.17 X10^3/uL; Eosinophils% 5.8 % (0-5); Hematocrit 38.2 % (37-47); Hemoglobin 11.9 g/dL (12.0-15.0); Lymphocyte # 0.92 X10^3/ul (0.83-4.51); Lymphocyte % 31.3 % (19-41); Mean Corp Hgb Conc 31.2 g/dL (32-36); Mean Corpuscular Hgb 26.8 pg (27.0-32.0); Mean Platelet Vol. 9.1 fl (6.2-12.0); Monocyte# 0.28 X10^3/uL; Monocyte% 9.5 % (0-10); NRBC Flagged by Analyzer 0 % (0-5); Neutrophil # 1.54 X10^3/uL (2.7-7.7); Neutrophil % 52.4 % (47-70); Platelet Count 302 K/mm3 (150-450); RBC Distribution Width CV 13.2 % (11.6-14.6); RBC Distribution Width SD 40.9 fl (35.1-43.9); Red Blood Count 4.44 M/mm3 (4.2-5.4); White Blood Count 2.9 K/mm3 (4.4-11.0)
[2021-06-01 12:11] LABS: AST(SGOT) 15 U/L (15-37); Alanine Aminotransfer ALT/SGPT 19 U/L (13-56); Albumin, Serum 3.8 g/dL (3.2-5.0); Alkaline Phosphatase 64 U/L (45-117); Anion Gap 4 (5-15); BUN 10 mg/dL (7-18); BUN/Creat Ratio 12.5 RATIO (10-20); Calcium,Total 9.2 mg/dL (8.5-10.1); Chloride 106 mmol/L (98-107); Cholesterol 169 mg/dL (200); EST Glomerular Filtration Rate 74 mL/min (>60); Est Glom Filt Rate - Afr Amer 90 mL/min (>60); Ferritin 70 ng/mL (8-252); Globulin 3.7 g/dL (2.2-4.2); Glucose 104 mg/dL (74-106); High Density Lipoprotein 79 mg/dL; Iron 53 ug/dL (50-170); Iron Binding Capacity,Total 261 ug/dL (250-450); Potassium 3.8 mmol/L (3.5-5.1); Protein, Total 7.5 g/dL (6.4-8.2); Sodium Level 142 mmol/L (136-145); T4 Free Direct 0.94 ng/dL (0.76-1.46); Thyroid Stim Hormone (TSH) 3.32 uIU/mL (0.358-3.74); Triglycerides 67 mg/dL; Very Low Density Lipoprotein 13 mg/dL (5-40)
[2021-06-01 12:17] LABS: Microalbumin,Random Urine 9.4 mg/L (NO RANGE EST.); Microalbumin:Creatinine Ratio 3.8 mg/g CRE (<30 mg/g CRE)
[2021-06-01 12:59] LABS: Hemoglobin A1c 6.1 % (3.8-5.6)
== END ==
PROVIDERS: PCP Family Medicine; Visit Provider Family Medicine
DX: E11.9 Type 2 diabetes mellitus without complications (principal); E61.1 Iron deficiency; E03.9 Hypothyroidism, unspecified
CPT/HCPCS: 36415; 80053; 80061; 82043; 82570; 82728; 83036; 83540; 83550; 84439; 84443; 85025

== ENCOUNTER → 2021-06-27 13:16 | Outpatient (CLI) | payer MEDICARE, SELFPAY ==
--- NOTE | 2021-06-27 13:18 | CT_ITS ---
STUDY: CT BRAIN WITHOUT CONTRAST REASON FOR EXAM: Female, 75 years old. A day history of headaches. History of prior subdural hematoma. RADIATION DOSAGE (If Supplied By Facility): CTDIvol = ( 38.43 ) mGy, DLP = ( 669.46 ) mGycm TECHNIQUE: Transaxial CT imaging of the brain was performed without administration of intravenous contrast material. Individualized dose optimization techniques were used for this CT. COMPARISON: Comparison is made with prior study dated 07/12/2018. FINDINGS: Normal soft tissue structures. The patient is status post bilateral frontal parietal jazmin holes. Normal size ventricles. The previously seen bilateral subdural hematomas have resolved. Prominence of the subdural spaces overlying the anterior frontal lobes bilaterally.. Normal white matter tracts of the cerebral hemispheres. Normal basal ganglia and thalami. Normal brainstem. Normal cerebellum. There is no intracranial hemorrhage. There are no findings of an acute ischemic infarction. Normal visualized paranasal sinuses. CT/Brain/Head without Contrast IMPRESSION: Chronic involutional changes of the brain. Prominence of the CSF spaces overlying both frontal lobes. This is the site of prior subdural hematomas. Electronically Signed: Romero Gonzáles MD at 14:15 EDT , Service support ,
== END ==
PROVIDERS: PCP Family Medicine; Visit Provider Family Medicine
DX: R27.8 Other lack of coordination (principal)
CPT/HCPCS: 70450

== ENCOUNTER → 2021-09-13 12:43 | Outpatient (CLI) | payer MEDICARE, SELFPAY ==
[2021-09-13 14:04] LABS: Absolute Lymphocyte Count 1.26 X10^3/uL (0.83-4.51); Absolute Neutrophil Count 2.5 X10^3/uL (2.0-7.7); Basophil# 0.03 X10^3/uL; Basophil% 0.7 % (0-1); Eosinophil# 0.25 X10^3/uL; Eosinophils% 5.6 % (0-5); Hematocrit 40.1 % (37-47); Hemoglobin 12.7 g/dL (12.0-15.0); Lymphocyte # 1.26 X10^3/ul (0.83-4.51); Lymphocyte % 28.4 % (19-41); Mean Corp Hgb Conc 31.7 g/dL (32-36); Mean Corpuscular Hgb 27.8 pg (27.0-32.0); Mean Corpuscular Volume 87.7 fL (81-99); Mean Platelet Vol. 9.6 fl (6.2-12.0); Monocyte# 0.44 X10^3/uL; Monocyte% 9.9 % (0-10); NRBC Flagged by Analyzer 0 % (0-5); Neutrophil # 2.45 X10^3/uL (2.7-7.7); Neutrophil % 55.2 % (47-70); Platelet Count 307 K/mm3 (150-450); RBC Distribution Width SD 41.7 fl (35.1-43.9); Red Blood Count 4.57 M/mm3 (4.2-5.4); White Blood Count 4.4 K/mm3 (4.4-11.0)
[2021-09-13 14:30] LABS: Ferritin 60 ng/mL (8-252); Iron 37 ug/dL (50-170); Iron Binding Capacity,Total 286 ug/dL (250-450)
== END ==
PROVIDERS: PCP Family Medicine; Referring Provider Nurse Practitioner Family; Visit Provider Nurse Practitioner Family
DX: E61.1 Iron deficiency (principal)
CPT/HCPCS: 36415; 82728; 83540; 83550; 85025

== ENCOUNTER → 2021-09-26 14:31 | Outpatient (CLI) | payer MEDICARE, SELFPAY ==
[2021-09-26 18:03] LABS: Hematocrit 36.7 % (37-47); Hemoglobin 11.8 g/dL (12.0-15.0); Mean Corp Hgb Conc 32.2 g/dL (32-36); Mean Corpuscular Hgb 27.8 pg (27.0-32.0); Mean Corpuscular Volume 86.6 fL (81-99); Mean Platelet Vol. 9.6 fl (6.2-12.0); Platelet Count 295 K/mm3 (150-450); RBC Distribution Width CV 12.9 % (11.6-14.6); RBC Distribution Width SD 40.4 fl (35.1-43.9); Red Blood Count 4.24 M/mm3 (4.2-5.4); White Blood Count 4.7 K/mm3 (4.4-11.0)
[2021-09-26 18:26] LABS: Iron 46 ug/dL (50-170)
== END ==
PROVIDERS: PCP Family Medicine; Referring Provider Internal Medicine Gastroenterology; Visit Provider Internal Medicine Gastroenterology
DX: K92.1 Melena (principal)
CPT/HCPCS: 36415; 83540; 85027

== ENCOUNTER → 2021-11-14 12:33 | Outpatient (CLI) | payer MEDICARE, SELFPAY ==
[2021-11-14 15:06] LABS: Absolute Lymphocyte Count 1.42 X10^3/uL (0.83-4.51); Absolute Neutrophil Count 2.1 X10^3/uL (2.0-7.7); Basophil# 0.04 X10^3/uL; Eosinophils% 4.9 % (0-5); Hematocrit 39.6 % (37-47); Hemoglobin 12.2 g/dL (12.0-15.0); Lymphocyte # 1.42 X10^3/ul (0.83-4.51); Lymphocyte % 35.1 % (19-41); Mean Corp Hgb Conc 30.8 g/dL (32-36); Mean Corpuscular Hgb 26.8 pg (27.0-32.0); Mean Corpuscular Volume 86.8 fL (81-99); Mean Platelet Vol. 9.5 fl (6.2-12.0); Monocyte# 0.29 X10^3/uL; Monocyte% 7.2 % (0-10); NRBC Flagged by Analyzer 0 % (0-5); Neutrophil # 2.08 X10^3/uL (2.7-7.7); Neutrophil % 51.3 % (47-70); Platelet Count 334 K/mm3 (150-450); RBC Distribution Width CV 13.2 % (11.6-14.6); RBC Distribution Width SD 41.9 fl (35.1-43.9); Red Blood Count 4.56 M/mm3 (4.2-5.4); White Blood Count 4.1 K/mm3 (4.4-11.0)
[2021-11-14 15:35] LABS: Ferritin 79 ng/mL (8-252); Iron 57 ug/dL (50-170)
== END ==
PROVIDERS: PCP Family Medicine; Referring Provider Internal Medicine Gastroenterology; Visit Provider Internal Medicine Gastroenterology
DX: D64.9 Anemia, unspecified (principal)
CPT/HCPCS: 36415; 82728; 83540; 85025

== ENCOUNTER 2021-11-19 09:37 | Outpatient (CLI) | payer MEDICARE, SELFPAY ==
[2021-11-19 12:13] LABS: Absolute Lymphocyte Count 0.94 X10^3/uL (0.83-4.51); Absolute Neutrophil Count 1.8 X10^3/uL (2.0-7.7); Basophil# 0.03 X10^3/uL; Basophil% 0.9 % (0-1); Eosinophil# 0.24 X10^3/uL; Eosinophils% 7.2 % (0-5); Hematocrit 38.7 % (37-47); Hemoglobin 12.3 g/dL (12.0-15.0); Lymphocyte # 0.94 X10^3/ul (0.83-4.51); Lymphocyte % 28.3 % (19-41); Mean Corp Hgb Conc 31.8 g/dL (32-36); Mean Corpuscular Hgb 27.4 pg (27.0-32.0); Mean Corpuscular Volume 86.2 fL (81-99); Mean Platelet Vol. 9.5 fl (6.2-12.0); Monocyte# 0.26 X10^3/uL; Monocyte% 7.8 % (0-10); NRBC Flagged by Analyzer 0 % (0-5); Neutrophil # 1.84 X10^3/uL (2.7-7.7); Neutrophil % 55.5 % (47-70); Platelet Count 314 K/mm3 (150-450); RBC Distribution Width CV 13.2 % (11.6-14.6); RBC Distribution Width SD 41.4 fl (35.1-43.9); Red Blood Count 4.49 M/mm3 (4.2-5.4); White Blood Count 3.3 K/mm3 (4.4-11.0)
[2021-11-19 12:35] LABS: BUN 9 mg/dL (7-18); Creatinine, Serum 0.77 mg/dL (0.55-1.02); Glucose 128 mg/dL (74-106)
[2021-11-19 12:36] LABS: ALB/GLOB Ratio 0.9 RATIO (0.9-2.4); AST(SGOT) 15 U/L (15-37); Alanine Aminotransfer ALT/SGPT 14 U/L (13-56); Albumin, Serum 3.7 g/dL (3.2-5.0); Alkaline Phosphatase 76 U/L (45-117); Anion Gap 5 (5-15); BUN/Creat Ratio 11.7 RATIO (10-20); Chloride 108 mmol/L (98-107); Cholesterol 163 mg/dL (200); EST Glomerular Filtration Rate 77 mL/min (>60); Est Glom Filt Rate - Afr Amer 93 mL/min (>60); Ferritin 70 ng/mL (8-252); Globulin 3.9 g/dL (2.2-4.2); High Density Lipoprotein 77 mg/dL; Iron 50 ug/dL (50-170); Iron Binding Capacity,Total 276 ug/dL (250-450); Potassium 3.6 mmol/L (3.5-5.1); Protein, Total 7.6 g/dL (6.4-8.2); Sodium Level 141 mmol/L (136-145); Triglycerides 59 mg/dL; Very Low Density Lipoprotein 12 mg/dL (5-40)
[2021-11-19 13:06] LABS: Hemoglobin A1c 5.9 % (3.8-5.6)
[2021-11-19 13:24] LABS: Microalbumin,Random Urine 16.9 mg/L (NO RANGE EST.); Microalbumin:Creatinine Ratio 15.1 mg/g CRE (<30 mg/g CRE)
== END 2021-11-19 23:59 | disposition home or self-care (01) ==
LOC: MFPLAB 09:38
PROVIDERS: PCP Family Medicine; Visit Provider Family Medicine
DX: E61.1 Iron deficiency (principal); E11.9 Type 2 diabetes mellitus without complications
CPT/HCPCS: 36415; 80053; 80061; 82043; 82570; 82728; 83036; 83540; 83550; 85025

== ENCOUNTER → 2022-02-15 | Outpatient (CLI) | payer MEDICARE, SELFPAY ==
[2022-02-15 10:42] LABS: Absolute Lymphocyte Count 1.07 X10^3/uL (0.83-4.51); Absolute Neutrophil Count 2.3 X10^3/uL (2.0-7.7); Basophil# 0.02 X10^3/uL; Basophil% 0.5 % (0-1); Eosinophil# 0.23 X10^3/uL; Eosinophils% 5.9 % (0-5); Hematocrit 38.6 % (37-47); Hemoglobin 12.1 g/dL (12.0-15.0); Lymphocyte # 1.07 X10^3/ul (0.83-4.51); Lymphocyte % 27.4 % (19-41); Mean Corp Hgb Conc 31.3 g/dL (32-36); Mean Corpuscular Hgb 26.8 pg (27.0-32.0); Mean Corpuscular Volume 85.4 fL (81-99); Mean Platelet Vol. 9.5 fl (6.2-12.0); Monocyte# 0.32 X10^3/uL; Monocyte% 8.2 % (0-10); NRBC Flagged by Analyzer 0 % (0-5); Neutrophil # 2.25 X10^3/uL (2.7-7.7); Neutrophil % 57.7 % (47-70); Platelet Count 339 K/mm3 (150-450); RBC Distribution Width CV 13.2 % (11.6-14.6); RBC Distribution Width SD 40.9 fl (35.1-43.9); Red Blood Count 4.52 M/mm3 (4.2-5.4); White Blood Count 3.9 K/mm3 (4.4-11.0)
[2022-02-15 11:02] LABS: AST(SGOT) 15 U/L (15-37); Alanine Aminotransfer ALT/SGPT 18 U/L (13-56); Albumin, Serum 3.8 g/dL (3.2-5.0); Alkaline Phosphatase 77 U/L (45-117); Anion Gap 6 (5-15); BUN 11 mg/dL (7-18); Calcium,Total 8.8 mg/dL (8.5-10.1); Chloride 107 mmol/L (98-107); Cholesterol 173 mg/dL (200); Creatinine, Serum 0.85 mg/dL (0.55-1.02); EST Glomerular Filtration Rate 69 mL/min (>60); Est Glom Filt Rate - Afr Amer 84 mL/min (>60); Ferritin 64 ng/mL (8-252); Glucose 139 mg/dL (74-106); High Density Lipoprotein 77 mg/dL; Iron 55 ug/dL (50-170); Iron Binding Capacity,Total 271 ug/dL (250-450); Potassium 3.4 mmol/L (3.5-5.1); Protein, Total 7.8 g/dL (6.4-8.2); Sodium Level 141 mmol/L (136-145); Triglycerides 56 mg/dL; Very Low Density Lipoprotein 11 mg/dL (5-40)
[2022-02-15 11:17] LABS: Hemoglobin A1c 6.3 % (3.8-5.6)
[2022-02-15 11:31] LABS: Microalbumin,Random Urine 9.6 mg/L (NO RANGE EST.); Microalbumin:Creatinine Ratio 8.4 mg/g CRE (<30 mg/g CRE)
== END | disposition home or self-care (01) ==
LOC: MTLAB 08:13
PROVIDERS: PCP Family Medicine; Referring Provider Family Medicine; Visit Provider Family Medicine
DX: E61.1 Iron deficiency (principal); E11.9 Type 2 diabetes mellitus without complications
CPT/HCPCS: 36415; 80053; 80061; 82043; 82570; 82728; 83036; 83540; 83550; 85025

== ENCOUNTER → 2022-06-19 | Outpatient (CLI) | payer MEDICARE, BC, SELFPAY ==
[2022-06-19 12:42] LABS: Absolute Lymphocyte Count 0.39 X10^3/uL (0.83-4.51); Absolute Neutrophil Count 3.8 X10^3/uL (2.0-7.7); Basophil# 0.03 X10^3/uL; Basophil% 0.6 % (0-1); Eosinophil# 0.22 X10^3/uL; Eosinophils% 4.5 % (0-5); Hematocrit 40.3 % (37-47); Hemoglobin 12.5 g/dL (12.0-15.0); Lymphocyte # 0.39 X10^3/ul (0.83-4.51); Mean Corpuscular Hgb 27.2 pg (27.0-32.0); Mean Corpuscular Volume 87.6 fL (81-99); Mean Platelet Vol. 9.7 fl (6.2-12.0); Monocyte# 0.36 X10^3/uL; Monocyte% 7.4 % (0-10); NRBC Flagged by Analyzer 0 % (0-5); Neutrophil # 3.84 X10^3/uL (2.7-7.7); Neutrophil % 79.1 % (47-70); POSITIVE DIFFERENTIAL YES; Platelet Count 312 K/mm3 (150-450); RBC Distribution Width CV 13.1 % (11.6-14.6); RBC Distribution Width SD 41.9 fl (35.1-43.9); White Blood Count 4.9 K/mm3 (4.4-11.0)
[2022-06-19 12:46] LABS: Differential Indicated SCAN CRITERIA MET
[2022-06-19 13:03] LABS: Hemoglobin A1c 6.5 % (3.8-5.6)
[2022-06-19 13:08] LABS: Differential Comment SCANNED
[2022-06-19 13:18] LABS: AST(SGOT) 16 U/L (15-37); Alanine Aminotransfer ALT/SGPT 20 U/L (13-56); Alkaline Phosphatase 80 U/L (45-117); Anion Gap 8 (5-15); BUN 10 mg/dL (7-18); Calcium,Total 9.3 mg/dL (8.5-10.1); Chloride 103 mmol/L (98-107); Cholesterol 154 mg/dL (200); Creatinine, Serum 0.83 mg/dL (0.55-1.02); EST Glomerular Filtration Rate 70 mL/min (>60); Est Glom Filt Rate - Afr Amer 85 mL/min (>60); Ferritin 107 ng/mL (8-252); Globulin 4.2 g/dL (2.2-4.2); Glucose 119 mg/dL (74-106); High Density Lipoprotein 74 mg/dL; Iron 31 ug/dL (50-170); Iron Binding Capacity,Total 341 ug/dL (250-450); Potassium 3.6 mmol/L (3.5-5.1); Protein, Total 8.2 g/dL (6.4-8.2); Sodium Level 138 mmol/L (136-145); Triglycerides 63 mg/dL; Very Low Density Lipoprotein 13 mg/dL (5-40)
== END | disposition home or self-care (01) ==
LOC: MFPLAB 10:30
PROVIDERS: PCP Family Medicine; Referring Provider Family Medicine; Visit Provider Family Medicine
DX: E11.9 Type 2 diabetes mellitus without complications (principal); E61.1 Iron deficiency
CPT/HCPCS: 36415; 80053; 80061; 82728; 83036; 83540; 83550; 85025

== ENCOUNTER 2022-09-03 08:16 | Outpatient (CLI) | payer MEDICARE, BC, SELFPAY ==
[2022-09-03 09:57] LABS: Absolute Lymphocyte Count 1.05 X10^3/uL (0.83-4.51); Absolute Neutrophil Count 2.1 X10^3/uL (2.0-7.7); Basophil# 0.04 X10^3/uL; Basophil% 1.1 % (0-1); Eosinophil# 0.16 X10^3/uL; Eosinophils% 4.3 % (0-5); Hematocrit 39.9 % (37-47); Hemoglobin 12.3 g/dL (12.0-15.0); Lymphocyte # 1.05 X10^3/ul (0.83-4.51); Mean Corp Hgb Conc 30.8 g/dL (32-36); Mean Corpuscular Hgb 26.9 pg (27.0-32.0); Mean Corpuscular Volume 87.1 fL (81-99); Mean Platelet Vol. 9.5 fl (6.2-12.0); Monocyte# 0.35 X10^3/uL; Monocyte% 9.3 % (0-10); NRBC Flagged by Analyzer 0 % (0-5); Neutrophil # 2.14 X10^3/uL (2.7-7.7); Platelet Count 324 K/mm3 (150-450); RBC Distribution Width CV 13.9 % (11.6-14.6); RBC Distribution Width SD 44.5 fl (35.1-43.9); Red Blood Count 4.58 M/mm3 (4.2-5.4); White Blood Count 3.8 K/mm3 (4.4-11.0)
[2022-09-03 10:12] LABS: Hemoglobin A1c 6.8 % (3.8-5.6)
[2022-09-03 10:16] LABS: Microalbumin,Random Urine 9.2 mg/L (NO RANGE EST.); Microalbumin:Creatinine Ratio 9.5 mg/g CRE (<30 mg/g CRE)
[2022-09-03 10:26] LABS: ALB/GLOB Ratio 1.1 RATIO (0.9-2.4); AST(SGOT) 12 U/L (15-37); Alanine Aminotransfer ALT/SGPT 18 U/L (13-56); Albumin, Serum 3.8 g/dL (3.2-5.0); Alkaline Phosphatase 76 U/L (45-117); Anion Gap 4 (5-15); BUN 10 mg/dL (7-18); BUN/Creat Ratio 12.9 RATIO (10-20); Calcium,Total 8.8 mg/dL (8.5-10.1); Chloride 107 mmol/L (98-107); Cholesterol 180 mg/dL (200); Creatinine, Serum 0.78 mg/dL (0.55-1.02); EST Glomerular Filtration Rate 77 mL/min (>60); Est Glom Filt Rate - Afr Amer 93 mL/min (>60); Ferritin 112 ng/mL (8-252); Globulin 3.5 g/dL (2.2-4.2); Glucose 112 mg/dL (74-106); High Density Lipoprotein 97 mg/dL; Iron 60 ug/dL (50-170); Iron Binding Capacity,Total 281 ug/dL (250-450); Potassium 4.1 mmol/L (3.5-5.1); Protein, Total 7.3 g/dL (6.4-8.2); Sodium Level 140 mmol/L (136-145); Triglycerides 54 mg/dL; Very Low Density Lipoprotein 11 mg/dL (5-40)
== END 2022-09-03 23:59 | disposition home or self-care (01) ==
LOC: MFPLAB 08:17
PROVIDERS: PCP Family Medicine; Referring Provider Family Medicine; Visit Provider Family Medicine
DX: E11.9 Type 2 diabetes mellitus without complications (principal); E61.1 Iron deficiency
CPT/HCPCS: 36415; 80053; 80061; 82043; 82570; 82728; 83036; 83540; 83550; 85025

== ENCOUNTER → 2023-01-01 | Outpatient (CLI) | payer MEDICARE, BC, SELFPAY ==
[2023-01-01 10:27] LABS: Absolute Lymphocyte Count 1.03 X10^3/uL (0.83-4.51); Absolute Neutrophil Count 1.9 X10^3/uL (2.0-7.7); Basophil# 0.04 X10^3/uL; Basophil% 1.1 % (0-1); Eosinophil# 0.32 X10^3/uL; Eosinophils% 8.8 % (0-5); Hematocrit 37.9 % (37-47); Hemoglobin 11.8 g/dL (12.0-15.0); Lymphocyte # 1.03 X10^3/ul (0.83-4.51); Lymphocyte % 28.3 % (19-41); Mean Corp Hgb Conc 31.1 g/dL (32-36); Mean Corpuscular Hgb 26.9 pg (27.0-32.0); Mean Corpuscular Volume 86.3 fL (81-99); Mean Platelet Vol. 9.8 fl (6.2-12.0); Monocyte# 0.31 X10^3/uL; Monocyte% 8.5 % (0-10); NRBC Flagged by Analyzer 0 % (0-5); Neutrophil # 1.93 X10^3/uL (2.7-7.7); Platelet Count 330 K/mm3 (150-450); RBC Distribution Width CV 13.4 % (11.6-14.6); RBC Distribution Width SD 42.3 fl (35.1-43.9); Red Blood Count 4.39 M/mm3 (4.2-5.4); White Blood Count 3.6 K/mm3 (4.4-11.0)
[2023-01-01 10:47] LABS: Hemoglobin A1c 6.4 % (3.8-5.6)
[2023-01-01 11:01] LABS: Microalbumin:Creatinine Ratio 10.2 mg/g CRE (<30 mg/g CRE)
[2023-01-01 11:17] LABS: AST(SGOT) 16 U/L (15-37); Alanine Aminotransfer ALT/SGPT 18 U/L (13-56); Albumin, Serum 3.7 g/dL (3.2-5.0); Alkaline Phosphatase 70 U/L (45-117); Anion Gap 7 (5-15); BUN 10 mg/dL (7-18); BUN/Creat Ratio 12.8 RATIO (10-20); Chloride 110 mmol/L (98-107); Cholesterol 172 mg/dL (200); Creatinine, Serum 0.78 mg/dL (0.55-1.02); EST Glomerular Filtration Rate 75 mL/min (>60); Est Glom Filt Rate - Afr Amer 91 mL/min (>60); Ferritin 90 ng/mL (8-252); Globulin 3.8 g/dL (2.2-4.2); Glucose 127 mg/dL (74-106); High Density Lipoprotein 71 mg/dL; Iron 43 ug/dL (50-170); Iron Binding Capacity,Total 235 ug/dL (250-450); Potassium 3.4 mmol/L (3.5-5.1); Protein, Total 7.5 g/dL (6.4-8.2); Sodium Level 144 mmol/L (136-145); Thyroid Stim Hormone (TSH) 4.14 uIU/mL (0.358-3.74); Triglycerides 59 mg/dL; Very Low Density Lipoprotein 12 mg/dL (5-40)
== END | disposition home or self-care (01) ==
LOC: MFPLAB 09:01
PROVIDERS: PCP Family Medicine; Referring Provider Family Medicine; Visit Provider Family Medicine
DX: E11.9 Type 2 diabetes mellitus without complications (principal); E61.1 Iron deficiency
CPT/HCPCS: 36415; 80053; 80061; 82043; 82570; 82728; 83036; 83540; 83550; 84443; 85025

== ENCOUNTER → 2023-01-07 | Outpatient (CLI) | payer MEDICARE, BC, SELFPAY ==
[2023-01-07 13:58] LABS: T4 Free Direct 0.84 ng/dL (0.76-1.46)
[2023-01-08 18:33] LABS: Anti-Thyroglobulin AB < 1.0 IU/mL (0.0-0.9); Thyroglobulin, Serum Qt. 15.3 ng/mL (1.5-38.5); Thyroid Peroxidase AB 12 IU/mL (0-34)
== END | disposition home or self-care (01) ==
LOC: MFPLAB 11:00
PROVIDERS: PCP Family Medicine; Referring Provider Family Medicine; Visit Provider Family Medicine
DX: R79.89 Other specified abnormal findings of blood chemistry (principal)
CPT/HCPCS: 36415; 84432; 84439; 86376; 86800

== ENCOUNTER → 2023-05-13 | Outpatient (CLI) | payer MEDICARE, BC, SELFPAY ==
[2023-05-13 12:22] LABS: Absolute Lymphocyte Count 1.08 X10^3/uL (0.83-4.51); Absolute Neutrophil Count 1.9 X10^3/uL (2.0-7.7); Basophil# 0.04 X10^3/uL; Basophil% 1.1 % (0-1); Eosinophil# 0.22 X10^3/uL; Eosinophils% 6.1 % (0-5); Hematocrit 39.3 % (37-47); Hemoglobin 12.2 g/dL (12.0-15.0); Lymphocyte # 1.08 X10^3/ul (0.83-4.51); Lymphocyte % 30.2 % (19-41); Mean Corpuscular Hgb 27.2 pg (27.0-32.0); Mean Corpuscular Volume 87.7 fL (81-99); Mean Platelet Vol. 10.1 fl (6.2-12.0); Monocyte# 0.34 X10^3/uL; Monocyte% 9.5 % (0-10); NRBC Flagged by Analyzer 0 % (0-5); Neutrophil % 53.1 % (47-70); Platelet Count 332 K/mm3 (150-450); RBC Distribution Width CV 13.5 % (11.6-14.6); RBC Distribution Width SD 43.4 fl (35.1-43.9); Red Blood Count 4.48 M/mm3 (4.2-5.4); White Blood Count 3.6 K/mm3 (4.4-11.0)
[2023-05-13 12:52] LABS: Hemoglobin A1c 6.3 % (3.8-5.6)
[2023-05-13 13:04] LABS: ALB/GLOB Ratio 0.9 RATIO (0.9-2.4); AST(SGOT) 16 U/L (15-37); Alanine Aminotransfer ALT/SGPT 16 U/L (13-56); Albumin, Serum 3.7 g/dL (3.2-5.0); Alkaline Phosphatase 75 U/L (45-117); Anion Gap 7 (5-15); BUN 13 mg/dL (7-18); BUN/Creat Ratio 15.7 RATIO (10-20); Calcium,Total 8.9 mg/dL (8.5-10.1); Chloride 108 mmol/L (98-107); Cholesterol 146 mg/dL (200); Creatinine, Serum 0.83 mg/dL (0.55-1.02); EST Glomerular Filtration Rate 71 mL/min (>60); Est Glom Filt Rate - Afr Amer 85 mL/min (>60); Ferritin 95 ng/mL (8-252); Glucose 118 mg/dL (74-106); High Density Lipoprotein 75 mg/dL; Iron 52 ug/dL (50-170); Iron Binding Capacity,Total 291 ug/dL (250-450); Potassium 3.6 mmol/L (3.5-5.1); Protein, Total 7.7 g/dL (6.4-8.2); Sodium Level 143 mmol/L (136-145); T4 Free Direct 1.01 ng/dL (0.76-1.46); Triglycerides 70 mg/dL; Very Low Density Lipoprotein 14 mg/dL (5-40)
== END | disposition home or self-care (01) ==
LOC: MFPLAB 09:49
PROVIDERS: PCP Family Medicine; Visit Provider Family Medicine
DX: R79.89 Other specified abnormal findings of blood chemistry (principal); E11.69 Type 2 diabetes mellitus with other specified complication; E61.1 Iron deficiency
CPT/HCPCS: 36415; 80053; 80061; 82728; 83036; 83540; 83550; 84439; 85025

== ENCOUNTER → 2023-08-27 | Outpatient (CLI) | payer MEDICARE, BC, SELFPAY ==
--- NOTE | 2023-08-27 14:14 | RAD_ITS ---
STUDY: X-RAY - THORACIC SPINE REASON FOR EXAM: Female, 78 years old. CHRONIC BACK PAIN TECHNIQUE: 3 view(s) of the thoracic spine were obtained. COMPARISON: None. FINDINGS: There is an increase in the normal thoracic kyphosis. There is mild dextroscoliosis. There is multilevel endplate spondylosis of the thoracic vertebrae. Normal disc space heights. There is partially visualized degenerative change within the cervical spine with robust anterior osteophytes. There is postoperative change in the right upper quadrant status post cholecystectomy. RAD/Thoracic Spine 3 Views IMPRESSION: Kyphosis mild dextroscoliosis. Degenerative change. No visualized acute loss of height or alignment. Electronically Signed: Rafia Roe MD at 5:47 EST ,
--- NOTE | 2023-08-27 14:14 | RAD_ITS ---
STUDY: X-RAY - LUMBAR SPINE REASON FOR EXAM: Female, 78 years old. CHRONIC BACK PAIN TECHNIQUE: 5 view(s) of the lumbar spine were obtained. COMPARISON: None FINDINGS: Normal lumbar lordosis. There is severe levo scoliosis. Grade 1 spondylolisthesis at L4-5 There is mild narrowing of the L3-4 and L4-5 disc spaces. No lytic or sclerotic bony lesions. Diffuse aortic calcification without evidence for aneurysm.. Status post cholecystectomy. RAD/L/S Spine Min 4 Views IMPRESSION: Scoliosis and degenerative change. No acute fracture or other significant bony pathology. Electronically Signed: Truman العلي MD at 22:28 EST ,
--- NOTE | 2023-08-27 14:16 | RAD_ITS ---
STUDY: X-RAY - CERVICAL SPINE REASON FOR EXAM: Female, 78 years old. CHRONIC BACK PAIN TECHNIQUE: 5 view(s) of the cervical spine were obtained. COMPARISON: None FINDINGS: Normal anterior atlantoaxial articulation. Normal odontoid process. Normal cervical lordosis. No evidence for acute fracture or subluxation. There is narrowing at C5-6 and C6-7 disc spaces with endplate spurring . There is bilateral neural foraminal stenosis at C5-6 and C6-7 secondary to bony hypertrophy. The soft tissue structures are unremarkable. RAD/Cerv Spine 4 or 5 Views IMPRESSION: No evidence for acute fracture or subluxation.. degenerative changes most severe at C5-6 and C6-7 Electronically Signed: Truman العلي MD at 22:24 EST ,
== END | disposition home or self-care (01) ==
PROVIDERS: PCP Family Medicine; Referring Provider Family Medicine; Visit Provider Family Medicine
DX: M54.9 Dorsalgia, unspecified (principal)
CPT/HCPCS: 72050; 72072; 72110

== ENCOUNTER → 2023-10-22 | Outpatient (CLI) | payer MEDICARE, BC, SELFPAY ==
--- OUTSIDE RECORDS SUMMARY | 2023-10-22 06:09 | XMS RPT_ITS | CCD ---
Author Name Unknown Address [address] [place] [address] Organization [facility] Care Team Providers Care Outside Deliverer Name Role Phone MD Salomon, Teodoro Ham Unavailable VITEBMATI SHANITA Unavailable Unavailable VITEBMATI SHANITA Unavailable Unavailable NO REFERRING DR Unavailable Unavailable MARIA GUADALUPE HERNANDEZ Unavailable Unavailable BROWN, SHITAL Unavailable Unavailable BROWN, SHITAL Unavailable Unavailable WANDY CADE Unavailable Unavailable ADAMS MARRERO Unavailable Unavailable MELISSA, RAMSEY Unavailable Unavailable MELISSA RAMSEY Unavailable Unavailable SHREYA MOSCOSO Unavailable Unavailable ABRIL SHIELDS Unavailable Unavailable KINGA ROSARIO Unavailable Unavailable VALDO VILLATORO Unavailable Unavailable YANICK, RIDDHI Unavailable Unavailable BROWN, SHITAL Unavailable Unavailable YANICK, RIDDHI Unavailable Unavailable BROWN, SHITAL Unavailable Unavailable Allergies Allergy Classification Reported Allergen(s) Allergy Type Date of Onset Reaction(s) Facility (1 source) lisinopril Drug Allergy 07-28-2014 cough [facility] Work Phone: (2 sources) NKDA drug allergy 01-12-2013 [facility] Work Phone: Medications Completed/Discontinued Medications Medication Drug Class(es) Dates Sig (Normalized) Sig (Original) amLODIPine 5 mg oral tablet (3 sources) Dihydropyridine Calcium Channel Uvaldo Start: 08-14-2016 take 1 tablet by mouth once daily NORVASC 5 MG TABS One tablet by mouth daily AMLODIPINE BESYLATE [id number] Teodoro Latif MD Problems Active Problems Problem Classification Problem Date Documented Date Episodic/Chronic Acute myocardial infarction (1 source) Non-ST elevation (NSTEMI) myocardial infarction; Translations: [Non-ST elevation (NSTEMI) myocardial infarction] Onset: 01-04-2016 01-04-2016 Chronic Cardiac dysrhythmias (4 sources) Paroxysmal supraventricular tachycardia; Translations: [Supraventricular tachycardia] Onset: 07-06-2012 08-14-2016 Chronic Conduction disorders (2 sources) Atrioventricular block, first degree; Translations: [Atrioventricular block, second degree] Onset: 10-10-2016 Chronic Disorders of lipid metabolism (1 source) Hyperlipidemia; Translations: [Hyperlipidemia, unspecified] Onset: 07-21-2012 07-21-2012 Chronic Essential hypertension (1 source) Hypertensive disorder; Translations: [Essential (primary) hypertension] Onset: 07-06-2012 07-06-2012 Chronic Unclassified (1 source) Radiofrequency ablation operation for arrhythmia ; Translations: [Other specified postprocedural states] Onset: 07-06-2012 08-14-2016 Past or Other Problems Problem Classification Problem Date Documented Da te Episodic/Chronic Cardiac dysrhythmias (1 source) Palpitations; Translations: [Palpitations] Onset: 07-06-2012 07-06-2012 Episodic Other circulatory disease (1 source) H/O: heart disorder; Translations: [Personal history of other diseases of the circulatory system] Onset: 07-06-2012 07-06-2012 Episodic Unclassified (1 source) Body mass index (BMI) 28.0-28.9, adult; Translations: [Body mass index (BMI) 28.0-28.9, adult] Onset: 06-10-2016 06-10-2016 Episodic Results Test Name Value Interpretation Reference Range Facil ity
--- NOTE | 2023-10-22 18:16 | STRESSREP ---
Stress Test Report Exercise myocardial perfusion stress test. 78-year-old lady with a history of chest pain Stress protocol: Resting EKG demonstrates normal sinus rhythm rate of 59 bpm resting blood pressure is 138/70 mmHg. The patient exercised according to the regular Frankie protocol for a total duration of 3 minutes attaining a maximum heart rate of 129 bpm which was 91% of maximum predicted heart rate; the maximum workload was 4.6 metabolic equivalents. At rest there were no ST or T wave changes noted to suggest ischemia and at peak exercise upsloping ST changes only were noted which did not meet the criteria for ischemia. No clinical angina was noted the test was terminated due to the target heart rate being achieved/fatigue. The peak blood pressure was 174/68 mmHg. Rate-pressure product was 22,000. Myocardial perfusion protocol. 11.8 mCi of technetium 99m sestamibi was injected at rest. The patient exercised according to regular Frankie protocol for total duration of 3 minutes and at peak exercise 34.5 mCi of technetium 99m sestamibi was injected stress images were obtained stress and rest images were reconstructed in comparing the short axis vertical long and horizontal long axis. Gated images were also obtained. Perfusion SPECT analysis: Review of the stress images demonstrate normal uptake of tracer noted in all areas of the myocardium. The resting images similarly demonstrate normal uptake of tracer noted in all areas of the myocardium. No areas of reversibility are noted to suggest ischemia no previous infarct was noted. Gated SPECT analysis: The gated ejection fraction is 77%. Conclusion: Normal exercise myocardial perfusion stress test at a low workload Preserved ejection fraction. Low workload may affect sensitivity for detection of ischemia.
== END | disposition home or self-care (01) ==
LOC: CVS 06:07
PROVIDERS: PCP Family Medicine; Referring Provider Nurse Practitioner Gerontology; Visit Provider Nurse Practitioner Gerontology
DX: R07.9 Chest pain, unspecified (principal)
CPT/HCPCS: 78452; 93017; A9500; A4216

== ENCOUNTER → 2023-11-26 | Outpatient (CLI) | payer MEDICARE, BC, SELFPAY ==
[2023-11-26 11:49] LABS: Absolute Lymphocyte Count 1.04 X10^3/uL (0.83-4.51); Absolute Neutrophil Count 1.7 X10^3/uL (2.0-7.7); Basophil# 0.04 X10^3/uL; Basophil% 1.2 % (0-1); Eosinophils% 6.2 % (0-5); Hematocrit 40.5 % (37-47); Hemoglobin 12.5 g/dL (12.0-15.0); Lymphocyte # 1.04 X10^3/ul (0.83-4.51); Mean Corp Hgb Conc 30.9 g/dL (32-36); Mean Corpuscular Hgb 26.8 pg (27.0-32.0); Mean Corpuscular Volume 86.7 fL (81-99); Mean Platelet Vol. 9.7 fl (6.2-12.0); Monocyte# 0.28 X10^3/uL; Monocyte% 8.6 % (0-10); NRBC Flagged by Analyzer 0 % (0-5); Neutrophil # 1.69 X10^3/uL (2.7-7.7); Platelet Count 348 K/mm3 (150-450); RBC Distribution Width CV 13.3 % (11.6-14.6); RBC Distribution Width SD 41.8 fl (35.1-43.9); Red Blood Count 4.67 M/mm3 (4.2-5.4); White Blood Count 3.3 K/mm3 (4.4-11.0)
[2023-11-26 12:32] LABS: Hemoglobin A1c 6.3 % (3.8-5.6)
[2023-11-26 12:38] LABS: AST(SGOT) 20 U/L (15-37); Alanine Aminotransfer ALT/SGPT 19 U/L (13-56); Alkaline Phosphatase 72 U/L (45-117); Anion Gap 3 (5-15); BUN 11 mg/dL (7-18); BUN/Creat Ratio 12.5 RATIO (10-20); Calcium,Total 9.2 mg/dL (8.5-10.1); Chloride 107 mmol/L (98-107); Cholesterol 216 mg/dL (200); Creatinine, Serum 0.88 mg/dL (0.55-1.02); EST Glomerular Filtration Rate 66 mL/min (>60); Est Glom Filt Rate - Afr Amer 79 mL/min (>60); Globulin 3.9 g/dL (2.2-4.2); Glucose 109 mg/dL (74-106); High Density Lipoprotein 70 mg/dL; Potassium 3.8 mmol/L (3.5-5.1); Protein, Total 7.9 g/dL (6.4-8.2); Sodium Level 140 mmol/L (136-145); T4 Free Direct 1.01 ng/dL (0.76-1.46); Thyroid Stim Hormone (TSH) 2.82 uIU/mL (0.358-3.74); Triglycerides 71 mg/dL; Very Low Density Lipoprotein 14 mg/dL (5-40)
[2023-11-27 05:52] LABS: Thyroid Peroxidase AB 25 IU/mL (0-34)
== END | disposition home or self-care (01) ==
LOC: MFPLAB 10:20
PROVIDERS: PCP Family Medicine; Visit Provider Family Medicine
DX: R79.89 Other specified abnormal findings of blood chemistry (principal); E11.8 Type 2 diabetes mellitus with unspecified complications
CPT/HCPCS: 36415; 80053; 80061; 82043; 82570; 83036; 84439; 84443; 85025; 86376

== ENCOUNTER → 2024-03-01 | Outpatient (CLI) | payer MEDICARE, BC, SELFPAY ==
[2024-03-01 08:53] LABS: Mucous, Urine 0 SEEN /hpf (<or=2+)
[2024-03-01 10:36] LABS: Absolute Lymphocyte Count 1.36 X10^3/uL (0.83-4.51); Absolute Neutrophil Count 2.9 X10^3/uL (2.0-7.7); Basophil# 0.06 X10^3/uL; Basophil% 1.2 % (0-1); Eosinophils% 4.1 % (0-5); Hematocrit 40.4 % (37-47); Hemoglobin 12.2 g/dL (12.0-15.0); Lymphocyte # 1.36 X10^3/ul (0.83-4.51); Lymphocyte % 27.8 % (19-41); Mean Corp Hgb Conc 30.2 g/dL (32-36); Mean Corpuscular Hgb 26.8 pg (27.0-32.0); Mean Corpuscular Volume 88.8 fL (81-99); Mean Platelet Vol. 9.7 fl (6.2-12.0); Monocyte# 0.38 X10^3/uL; Monocyte% 7.8 % (0-10); NRBC Flagged by Analyzer 0 % (0-5); Neutrophil # 2.88 X10^3/uL (2.7-7.7); Neutrophil % 58.7 % (47-70); Platelet Count 333 K/mm3 (150-450); RBC Distribution Width CV 13.5 % (11.6-14.6); Red Blood Count 4.55 M/mm3 (4.2-5.4); White Blood Count 4.9 K/mm3 (4.4-11.0)
[2024-03-01 10:52] LABS: AST(SGOT) 14 U/L (15-37); Alanine Aminotransfer ALT/SGPT 14 U/L (13-56); Albumin, Serum 3.8 g/dL (3.2-5.0); Alkaline Phosphatase 94 U/L (45-117); Anion Gap 4 (5-15); BUN 16 mg/dL (7-18); BUN/Creat Ratio 19.4 RATIO (10-20); Chloride 108 mmol/L (98-107); Cholesterol 159 mg/dL (200); Creatinine, Serum 0.82 mg/dL (0.55-1.02); EST Glomerular Filtration Rate 71 mL/min (>60); Est Glom Filt Rate - Afr Amer 86 mL/min (>60); Glucose 106 mg/dL (74-106); High Density Lipoprotein 86 mg/dL; Potassium 3.9 mmol/L (3.5-5.1); Protein, Total 7.8 g/dL (6.4-8.2); Sodium Level 142 mmol/L (136-145); Triglycerides 35 mg/dL; Very Low Density Lipoprotein 7 mg/dL (5-40)
[2024-03-01 10:59] LABS: Color, Urine Yellow (Yellow); Glucose, Dipstick Normal (Normal); Ketone-Dipstick Negative (Negative); Leukocyte Esterase-Dipstick 25 /ul (Negative); Nitrite-Dipstick Negative (Negative); Occult Blood-Urine Negative /ul (Negative); Protein-Dipstick Negative (Negative); Urine Bilirubin Dipstick Negative (Negative); Urine Clarity Clear (Clear); Urine Urobilinogen 1 mg/dl (Normal)
[2024-03-01 11:10] LABS: Bacteria 1+ /hpf (None Seen); Red Blood Cells-Urine 0-5 SEEN /hpf (0-5); Squamous Epithelial Cells - UA 0-5 SEEN /hpf (5-10); White Blood Cells 0-5 SEEN /hpf (0-5)
[2024-03-01 15:19] LABS: Hemoglobin A1c 6.1 % (3.8-5.6)
[2024-03-05 18:14] LABS: Microalbumin,Random Urine 11.6 mg/L (NO RANGE EST.); Microalbumin:Creatinine Ratio 9.2 mg/g CRE (<30 mg/g CRE)
== END | disposition home or self-care (01) ==
LOC: MFPLAB 08:52
PROVIDERS: PCP Family Medicine; Visit Provider Family Medicine
DX: E11.8 Type 2 diabetes mellitus with unspecified complications (principal)
CPT/HCPCS: 36415; 80053; 80061; 81001; 82043; 82570; 83036; 85025

== ENCOUNTER → 2024-07-06 | Outpatient (CLI) | payer MEDICARE, BC, SELFPAY ==
[2024-07-06 09:46] LABS: Bacteria 0 SEEN /hpf (None Seen); Mucous, Urine 0 SEEN /hpf (<or=2+)
[2024-07-06 12:24] LABS: Absolute Lymphocyte Count 0.88 X10^3/uL (0.83-4.51); Absolute Neutrophil Count 2.3 X10^3/uL (2.0-7.7); Basophil# 0.06 X10^3/uL; Basophil% 1.6 % (0-1); Eosinophil# 0.21 X10^3/uL; Eosinophils% 5.6 % (0-5); Hematocrit 40.4 % (37-47); Hemoglobin 12.3 g/dL (12.0-15.0); Lymphocyte # 0.88 X10^3/ul (0.83-4.51); Lymphocyte % 23.7 % (19-41); Mean Corp Hgb Conc 30.4 g/dL (32-36); Mean Corpuscular Hgb 26.6 pg (27.0-32.0); Mean Corpuscular Volume 87.4 fL (81-99); Mean Platelet Vol. 9.8 fl (6.2-12.0); Monocyte# 0.27 X10^3/uL; Monocyte% 7.3 % (0-10); NRBC Flagged by Analyzer 0 % (0-5); Neutrophil # 2.29 X10^3/uL (2.7-7.7); Neutrophil % 61.5 % (47-70); Platelet Count 324 K/mm3 (150-450); RBC Distribution Width CV 13.2 % (11.6-14.6); RBC Distribution Width SD 41.8 fl (35.1-43.9); Red Blood Count 4.62 M/mm3 (4.2-5.4); White Blood Count 3.7 K/mm3 (4.4-11.0)
[2024-07-06 12:55] LABS: Hemoglobin A1c 6.3 % (3.8-5.6)
[2024-07-06 13:15] LABS: Color, Urine Yellow (Yellow); Glucose, Dipstick Normal (Normal); Ketone-Dipstick Negative (Negative); Leukocyte Esterase-Dipstick 25 /ul (Negative); Nitrite-Dipstick Negative (Negative); Occult Blood-Urine 10 /ul (Negative); Protein-Dipstick 30 mg/dl (Negative); Urine Clarity Sl. Cloudy (Clear); Urine Urobilinogen 1 mg/dl (Normal)
[2024-07-06 13:19] LABS: Urine Bilirubin Dipstick 1 mg/dL (Negative)
[2024-07-06 13:30] LABS: Red Blood Cells-Urine 0-5 SEEN /hpf (0-5); Squamous Epithelial Cells - UA 5-10 SEEN /hpf (5-10); White Blood Cells 0-5 SEEN /hpf (0-5)
[2024-07-06 13:31] LABS: AST(SGOT) 14 U/L (15-37); Alanine Aminotransfer ALT/SGPT 14 U/L (13-56); Alkaline Phosphatase 74 U/L (45-117); Anion Gap 8 (5-15); BUN 11 mg/dL (7-18); BUN/Creat Ratio 12.1 RATIO (10-20); Calcium,Total 9.2 mg/dL (8.5-10.1); Chloride 106 mmol/L (98-107); Cholesterol 160 mg/dL (200); Creatinine, Serum 0.91 mg/dL (0.55-1.02); EST Glomerular Filtration Rate 63 mL/min (>60); Est Glom Filt Rate - Afr Amer 77 mL/min (>60); Ferritin 116 ng/mL (8-252); Globulin 3.9 g/dL (2.2-4.2); Glucose 127 mg/dL (74-106); High Density Lipoprotein 82 mg/dL; Iron 46 ug/dL (50-170); Iron Binding Capacity,Total 286 ug/dL (250-450); Potassium 3.3 mmol/L (3.5-5.1); Protein, Total 7.9 g/dL (6.4-8.2); Sodium Level 141 mmol/L (136-145); Triglycerides 82 mg/dL; Very Low Density Lipoprotein 16 mg/dL (5-40)
[2024-07-06 14:01] LABS: Microalbumin,Random Urine 41.5 mg/L (NO RANGE EST.); Microalbumin:Creatinine Ratio 15.4 mg/g CRE (<30 mg/g CRE)
== END | disposition home or self-care (01) ==
LOC: MFPLAB 09:44
PROVIDERS: PCP Family Medicine; Referring Provider Family Medicine; Visit Provider Family Medicine
DX: E11.8 Type 2 diabetes mellitus with unspecified complications (principal); E61.1 Iron deficiency
CPT/HCPCS: 80053; 80061; 81001; 82043; 82570; 82728; 83036; 83540; 83550; 85025

== ENCOUNTER → 2025-01-11 | Outpatient (CLI) | payer MEDICARE, BC, SELFPAY ==
[2025-01-11 10:43] LABS: Bacteria 0 SEEN /hpf (None Seen); Mucous, Urine 0 SEEN /hpf (<or=2+); Red Blood Cells-Urine 0 SEEN /hpf (0-5)
[2025-01-11 12:31] LABS: Color, Urine Yellow (Yellow); Glucose, Dipstick Normal (Normal); Ketone-Dipstick Negative (Negative); Leukocyte Esterase-Dipstick 25 /ul (Negative); Nitrite-Dipstick Negative (Negative); Occult Blood-Urine 10 /ul (Negative); Protein-Dipstick 15 mg/dl (Negative); Urine Bilirubin Dipstick Negative (Negative); Urine Clarity Clear (Clear); Urine Urobilinogen Normal (Normal)
[2025-01-11 12:38] LABS: Absolute Lymphocyte Count 1.23 X10^3/uL (0.83-4.51); Absolute Neutrophil Count 1.6 X10^3/uL (2.0-7.7); Basophil# 0.03 X10^3/uL; Basophil% 0.9 % (0-1); Eosinophil# 0.21 X10^3/uL; Eosinophils% 6.3 % (0-5); Hematocrit 36.5 % (37-47); Hemoglobin 11.7 g/dL (12.0-15.0); Lymphocyte # 1.23 X10^3/ul (0.83-4.51); Lymphocyte % 36.6 % (19-41); Mean Corp Hgb Conc 32.1 g/dL (32-36); Mean Corpuscular Hgb 27.9 pg (27.0-32.0); Mean Corpuscular Volume 86.9 fL (81-99); Mean Platelet Vol. 9.6 fl (6.2-12.0); Monocyte# 0.29 X10^3/uL; Monocyte% 8.6 % (0-10); NRBC Flagged by Analyzer 0 % (0-5); Neutrophil # 1.59 X10^3/uL (2.7-7.7); Neutrophil % 47.3 % (47-70); Platelet Count 319 K/mm3 (150-450); RBC Distribution Width CV 13.2 % (11.6-14.6); RBC Distribution Width SD 41.2 fl (35.1-43.9); White Blood Count 3.4 K/mm3 (4.4-11.0)
[2025-01-11 12:39] LABS: Squamous Epithelial Cells - UA 0-5 SEEN /hpf (5-10); White Blood Cells 0-5 SEEN /hpf (0-5)
[2025-01-11 12:53] LABS: Microalbumin,Random Urine < 12.0 mg/L (NO RANGE EST.); Microalbumin:Creatinine Ratio UNABLE TO CALCULATE mg/g CRE
[2025-01-11 12:56] LABS: Hemoglobin A1c 6.2 % (<=5.6)
[2025-01-11 13:15] LABS: ALB/GLOB Ratio 1.4 RATIO (0.9-2.4); AST(SGOT) 22 U/L (<=31); Alanine Aminotransfer ALT/SGPT 11 U/L (<=34); Albumin, Serum 4.2 g/dL (3.4-4.8); Alkaline Phosphatase 76 U/L (35-104); Anion Gap 11 (5-15); BUN 11 mg/dL (4-19); BUN/Creat Ratio 13.3 RATIO (10-20); Calcium,Total 9.3 mg/dL (7.6-11.0); Carbon Dioxide 26.5 mmol/L (21.0-32.0); Chloride 104 mmol/L (98-108); Cholesterol 176 mg/dL (<=200); Creatinine, Serum 0.82 mg/dL (0.70-1.20); EST Glomerular Filtration Rate 72 (>60); Ferritin 141 ng/mL (22-378); Glucose 127 mg/dL (70-99); High Density Lipoprotein 76 mg/dL; Low Density Lipoprotein Calc. 88 mg/dL; Potassium 3.8 mmol/L (3.3-5.1); Protein, Total 7.2 g/dL (5.9-8.4); Sodium Level 141 mmol/L (133-145); Total Bilirubin 0.37 mg/dL (0.00-1.30); Triglycerides 60 mg/dL; Very Low Density Lipoprotein 12 mg/dL (5-40); cholesterol:hdl ratio screen 2.32
[2025-01-11 14:02] LABS: Iron 54 ug/dL (50-170)
== END | disposition home or self-care (01) ==
LOC: MFPLAB 10:30
PROVIDERS: PCP Family Medicine; Visit Provider Family Medicine
DX: E11.8 Type 2 diabetes mellitus with unspecified complications (principal); E61.1 Iron deficiency
CPT/HCPCS: 36415; 80053; 80061; 81001; 82043; 82570; 82728; 83036; 83540; 85025

== ENCOUNTER → 2025-05-16 | Outpatient (CLI) | payer MEDICARE, BC, SELFPAY ==
[2025-05-16 09:28] LABS: Mucous, Urine 0 SEEN /hpf (<or=2+); Red Blood Cells-Urine 0 SEEN /hpf (0-5); Squamous Epithelial Cells - UA 0 SEEN /hpf (5-10)
[2025-05-16 12:32] LABS: Color, Urine Yellow (Yellow); Glucose, Dipstick Normal (Normal); Ketone-Dipstick Negative (Negative); Leukocyte Esterase-Dipstick Negative /ul (Negative); Nitrite-Dipstick Negative (Negative); Occult Blood-Urine Negative /ul (Negative); Protein-Dipstick Negative (Negative); Specific Gravity, Urine 1.010 (1.002-1.030); Urine Bilirubin Dipstick Negative (Negative)
[2025-05-16 12:39] LABS: Hematocrit 36.5 % (37-47); Hemoglobin 11.5 g/dL (12.0-15.0); Immature Granulocytes Count 0.000 X10^3/uL (0.0-0.0); Mean Corp Hgb Conc 31.5 g/dL (32-36); Mean Corpuscular Volume 86.3 fL (81-99); Mean Platelet Vol. 10.2 fl (6.2-12.0); NRBC Flagged by Analyzer 0 % (0-5); Platelet Count 319 K/mm3 (150-450); RBC Distribution Width CV 13.3 % (11.6-14.6); RBC Distribution Width SD 42.0 fl (35.1-43.9); Red Blood Count 4.23 M/mm3 (4.2-5.4); White Blood Count 2.9 K/mm3 (4.4-11.0)
[2025-05-16 13:11] LABS: Creatinine, Urine (random) 130.00 mg/dL (28.00-217.00); Microalbumin,Random Urine < 12.0 mg/L (<20 mg/L)
[2025-05-16 14:10] LABS: AST(SGOT) 20 U/L (<=31); Alanine Aminotransfer ALT/SGPT 10 U/L (<=34); Albumin, Serum 4.3 g/dL (3.4-4.8); Alkaline Phosphatase 65 U/L (35-104); Anion Gap 12 (5-15); BUN 10 mg/dL (4-19); BUN/Creat Ratio 12.5 RATIO (10-20); Calcium,Total 9.4 mg/dL (7.6-11.0); Carbon Dioxide 24.4 mmol/L (21.0-32.0); Chloride 107 mmol/L (98-108); Ferritin 135 ng/mL (22-378); Globulin 2.8 g/dL (2.2-4.2); Glucose 108 mg/dL (70-99); Iron 50 ug/dL (50-170); Iron Binding Capacity,Total 240 ug/dL (250-450); Iron Binding Capacity,Unsat 190 ug/dL (228-428); Magnesium 2.3 mg/dL (1.5-2.2); Potassium 3.9 mmol/L (3.3-5.1)
[2025-05-16 15:45] LABS: Cholesterol 151 mg/dL (<=200); Low Density Lipoprotein Calc. 66 mg/dL; Triglycerides 71 mg/dL; Very Low Density Lipoprotein 14 mg/dL (5-40); cholesterol:hdl ratio screen 2.15
== END | disposition home or self-care (01) ==
LOC: MFPLAB 09:23
PROVIDERS: PCP Family Medicine; Visit Provider Family Medicine
DX: E61.1 Iron deficiency (principal); E11.69 Type 2 diabetes mellitus with other specified complication; E11.59 Type 2 diabetes mellitus with other circulatory complications
CPT/HCPCS: 36415; 80053; 80061; 81001; 82043; 82570; 82728; 83036; 83540; 83550; 83735; 84443; 85025